=== PATIENT | male | born 1935 | race Caucasian/White ===

== ENCOUNTER 2017-10-13 10:46 | Observation (INO) | payer OTHER, MEDICARE ==
[~2017-10-13] VITALS: Ht 172.7 cm; Wt 77.0 kg
[~2017-10-13 10:46] MED LIST: ACET500 PO; ASPI325EC PO; ASPI81EC PO; ATEN50 PO; ATENOLOL PO; ATOR20 PO; CHOL10002 PO; CLOP75 PO; COLCHICINE0.6 MG PO; DICL25ER PO; FERR325 PO; Fergon240 M1 PO; GABA300 PO; GLIP5 PO; HYDRO EYES PO; HYDROCHLOROTHIAZIDE PO; INSN100I SC; INSULANPEN SC; LISI20 PO; LISINOPRIL PO; LOSA50 PO; METF850 PO; NOVOLIN SQ; OMEP20ER PO; OMEPRAZOLE MAGN20 MG PO; PRAZ2 PO; ROXICODONE5 MG PO; SIMV20 PO; Vitamin C100 M1 PO
[2017-10-13 11:48] LABS: BASOPHILS ABSOLUTE AUTO 0.02 K/mm3 (0.00-0.23); BASOPHILS PERCENT AUTO 0 % (0-2); EOSINOPHILS ABSOLUTE AUTO 0.19 K/mm3 (0.00-0.68); EOSINOPHILS PERCENT AUTO 3 % (0-6); Hematocrit 31.9 % (37.0-53.0); Hemoglobin 10.2 g/dL (13.5-17.5); IMMATURE GRAN ABSOLUTE AUTO 0.01 K/mm3 (0.00-0.10); IMMATURE GRAN PERCENT AUTO 0 % (0-1); LYMPHOCYTES ABSOLUTE AUTO 0.56 K/mm3 (0.84-5.20); LYMPHOCYTES PERCENT AUTO 9 % (21-46); MONOCYTES ABSOLUTE AUTO 0.67 K/mm3 (0.16-1.47); MONOCYTES PERCENT AUTO 11 % (4-13); Mean Corpuscular HGB 27.9 pg (26.0-34.0); Mean Corpuscular Volume 87 fL (80-100); Mean Platelet Volume 10.5 fL (9.1-12.4); NEUTROPHILS ABSOLUTE AUTO 4.82 K/mm3 (1.96-9.15); NEUTROPHILS PERCENT AUTO 77 % (41-73); Platelet Count 158 K/mm3 (150-400); RDW Coefficient Variation 14.9 % (11.7-14.2); RDW Standard Deviation 47.4 fL (35.1-46.3); Red Blood Cell Count 3.66 M/mm3 (4.30-5.90); White Blood Cell Count 6.27 K/mm3 (4.00-11.30)
[2017-10-13 12:16] LABS: Alanine Aminotransfer (ALT/SGP 30 U/L (12-78); Albumin, Blood 3.1 g/dL (3.4-5.0); Albumin/Globulin Ratio 1.1 (0.8-1.8); Alk Phos 88 U/L (50-136); Anion Gap 7 mmol/L (6-16); Aspartate Aminotrans (AST/SGOT 20 U/L (12-37); Bilirubin, Total 0.3 mg/dL (0.1-1.0); Blood Urea Nitrogen 21 mg/dL (8-24); Bun/Creatinine Ratio 19.6 (12.0-20.0); CO2, Blood 24 mmol/L (21-32); Chloride, Blood 111 mmol/L (98-108); Creatinine, Blood 1.07 mg/dL (0.60-1.20); Globulin, Blood 2.9 g/dL (2.2-4.0); Glomerular Filtration Rate >60 (60-); Glucose, Blood 207 mg/dL (70-99); Potassium, Blood 4.3 mmol/L (3.5-5.5); Sodium, Blood 142 mmol/L (136-145); Troponin I <0.015 ng/mL (0.000-0.040)
[2017-10-13] MEDS ORDERED: PRAZ2 PO (12:36)
[2017-10-13] MEDS ORDERED: ATEN50 PO (12:37)
[2017-10-13] MEDS ORDERED: ACET500 PO (12:38)
[2017-10-13] MEDS ORDERED: ALLO100 PO (12:40)
[2017-10-13 13:13] LABS: International Normalized Ratio 1.01; Prothrombin Time Results 10.5 Sec (9.7-11.5)
[2017-10-14 05:42] LABS: CHOL/HDL RATIO 2.7; Cholesterol 74 mg/dL (50-200); HDL Cholesterol 27 mg/dL (>39); LDL/HDL RATIO 0.1; Low Density Lipoprotein Chol 4 mg/dL (0-110); Triglycerides 217 mg/dL (30-160); Very Low Density Lipoprot Chol 43 mg/dL (6-32)
[2017-10-14] MEDS ORDERED: Aspirin EC81 MG PO (09:36)
== END 2017-10-14 10:48 | disposition home or self-care (01) ==
LOC: ER 10:46 → MEDS 10:47 → ER 12:58 → MEDS 12:58 → ENPENDDIS 10-14 09:00 → MEDS 10-14 10:48
PROVIDERS: Family Medicine; Physician Assistant
DX: G45.9 Transient cerebral ischemic attack, unspecified (principal); E78.5 Hyperlipidemia, unspecified; I10 Essential (primary) hypertension; E11.9 Type 2 diabetes mellitus without complications; D50.9 Iron deficiency anemia, unspecified; I25.10 Atherosclerotic heart disease of native coronary artery without angina pectoris; I73.9 Peripheral vascular disease, unspecified; M10.9 Gout, unspecified; G89.29 Other chronic pain; Z87.11 Personal history of peptic ulcer disease; Z87.442 Personal history of urinary calculi; Z87.891 Personal history of nicotine dependence; Z88.6 Allergy status to analgesic agent; Z88.8 Allergy status to other drugs, medicaments and biological substances; Z79.02 Long term (current) use of antithrombotics/antiplatelets; Z79.52 Long term (current) use of systemic steroids; Z79.82 Long term (current) use of aspirin; Z79.84 Long term (current) use of oral hypoglycemic drugs; Z79.899 Other long term (current) drug therapy; Z96.652 Presence of left artificial knee joint; Z90.89 Acquired absence of other organs; Z98.890 Other specified postprocedural states
CPT/HCPCS: 36415; 70450; 70551; 80053; 80061; 82947; 84443; 84484; 85025; 85610; 85730; 93005; 93010; 93880; 97116; 97161; 97530; 99285; G0378; G8978; G8979; G8980; J1650; J1815

== ENCOUNTER → 2018-06-16 | Outpatient (CLI) | payer MEDICARE, OTHER ==
[~2018-06-16] MED LIST changes: +ALLO100 PO; +Aspirin EC81 MG PO
== END | disposition home or self-care (01) ==
LOC: PLD 08:11 → LAB SHORT 08:11
DX: D22.5 Melanocytic nevi of trunk (principal)
CPT/HCPCS: 88305

== ENCOUNTER → 2018-06-25 | Outpatient (CLI) | payer MEDICARE, OTHER | END | disposition home or self-care (01) | LOC: LAB SHORT 11:45 → PLD 11:45 | DX: D22.5 Melanocytic nevi of trunk (principal) | CPT/HCPCS: 88305 ==

== ENCOUNTER 2018-10-13 13:29 | Observation (INO) | payer OTHER, MEDICARE ==
[~2018-10-13] VITALS: Ht 172.7 cm; Wt 77.6 kg
[2018-10-13 14:40] LABS: BASOPHILS ABSOLUTE AUTO 0.03 K/mm3 (0.00-0.23); BASOPHILS PERCENT AUTO 1 % (0-2); EOSINOPHILS ABSOLUTE AUTO 0.16 K/mm3 (0.00-0.68); EOSINOPHILS PERCENT AUTO 3 % (0-6); Hematocrit 32.7 % (37.0-53.0); Hemoglobin 10.1 g/dL (13.5-17.5); IMMATURE GRAN ABSOLUTE AUTO 0.03 K/mm3 (0.00-0.10); IMMATURE GRAN PERCENT AUTO 1 % (0-1); LYMPHOCYTES ABSOLUTE AUTO 0.99 K/mm3 (0.84-5.20); LYMPHOCYTES PERCENT AUTO 18 % (21-46); MONOCYTES ABSOLUTE AUTO 0.44 K/mm3 (0.16-1.47); MONOCYTES PERCENT AUTO 8 % (4-13); Mean Corpuscular HGB 27.9 pg (26.0-34.0); Mean Corpuscular HGB Conc 30.9 g/dL (31.5-36.5); Mean Corpuscular Volume 90 fL (80-100); Mean Platelet Volume 10.6 fL (9.1-12.4); NEUTROPHILS ABSOLUTE AUTO 3.81 K/mm3 (1.96-9.15); NEUTROPHILS PERCENT AUTO 70 % (41-73); Platelet Count 190 K/mm3 (150-400); RDW Coefficient Variation 15.1 % (11.7-14.2); RDW Standard Deviation 49.6 fL (35.1-46.3); Red Blood Cell Count 3.62 M/mm3 (4.30-5.90); White Blood Cell Count 5.46 K/mm3 (4.00-11.30)
[2018-10-13 14:51] LABS: Alanine Aminotransfer (ALT/SGP 31 U/L (12-78); Albumin, Blood 3.1 g/dL (3.4-5.0); Alk Phos 84 U/L (50-136); Anion Gap 5 mmol/L (6-16); Aspartate Aminotrans (AST/SGOT 23 U/L (12-37); Bilirubin, Total 0.3 mg/dL (0.1-1.0); Blood Urea Nitrogen 16 mg/dL (8-24); Bun/Creatinine Ratio 14.2 (12.0-20.0); CO2, Blood 27 mmol/L (21-32); Calcium, Blood 7.9 mg/dL (8.5-10.1); Chloride, Blood 111 mmol/L (98-108); Creatinine, Blood 1.13 mg/dL (0.60-1.20); Glomerular Filtration Rate >60 (60-); Glucose, Blood 160 mg/dL (70-99); Potassium, Blood 4.4 mmol/L (3.5-5.5); Sodium, Blood 143 mmol/L (136-145); Total Protein, Blood 6.1 g/dL (6.4-8.2); Troponin I <0.015 ng/mL (0.000-0.040)
--- NOTE | 2018-10-13 17:06 | NUR ---
ECHOCARDIOGRAM COMPLETED
--- NOTE | 2018-10-13 19:16 | NUR ---
SHIFT SUMMARY. 1800 PT ADMITTED TO MEDICAL FLOOR VIA W/C. PT TRANSFERED TO W/C WITH 1 ASSIST. PT REPORTS DULL SUBSTERNAL PAIN OF 3/10. PT REPORTS PAIN HAS BEEN A 5/10 AT NOON. NO SOB, DIAPHORESIS, N/V. AT BEDSIDE. REQUESTED [facility] REC AND MOST RECENT EKG VIA FAX.
[2018-10-13] MEDS ORDERED: PANT40 PO (20:21)
[2018-10-13] MEDS ORDERED: CETI5 PO (20:22)
[2018-10-13] MEDS ORDERED: METO50 PO (20:23)
--- NOTE | 2018-10-14 04:23 | NUR ---
SHIFT SUMMARY PT ADMITTED FOR CP. LIMITED CODE STATUS: MEDICATION, CHEST COMPRESSION, DEFIBRILLATION. ADA-1800 CALORIE DIET. CBG AT AND HS. LOVENOX FOR DVT PROPHYLAXIS. 1 ASSIST WITH TRANSFER. BALANCE ISSUES NOTED. MEDS WHOLE. PT WOKE YESTERDAY AM FEELING DIZZY, LIKE HIS HEART WAS RACING, AND NAUSEATED. BY THE AFTERNOON THE PT HAD DEVELOPED DULL MIDCHEST CP THAT HAS GRADUALLY INCREASED. THE PT REPORTS HISTORY OF A SMALL NC IN THE . THE PT APPEARS TO BE ALERT, ORIENTED, PLEASENT, AND COOPERATIVE WITH CARE. PT HAS APPEARED TO SLEEP COMFORTABLY SINCE ABOUT 0000 AND LEFT AROUND 0015 AND STATED SHE WOULD RETURN AROUND 0600. EASILY AWAKENS WITH CARE. PT APPEARS TO BE SLEEPING COMFORTABLY AT THIS TIME WITH NO APPARENT SIGNS OF ACUTE DISTRESS. ABLE TO MAKE NEEDS KNOWN AND CALL LIGHT IN REACH.
[2018-10-14 04:32] LABS: Anion Gap 7 mmol/L (6-16); Blood Urea Nitrogen 17 mg/dL (8-24); Bun/Creatinine Ratio 15.6 (12.0-20.0); CO2, Blood 25 mmol/L (21-32); Calcium, Blood 8.2 mg/dL (8.5-10.1); Chloride, Blood 112 mmol/L (98-108); Creatinine, Blood 1.09 mg/dL (0.60-1.20); Glomerular Filtration Rate >60 (60-); Glucose, Blood 91 mg/dL (70-99); Potassium, Blood 3.8 mmol/L (3.5-5.5); Sodium, Blood 144 mmol/L (136-145)
--- NOTE | 2018-10-14 05:47 | NUR ---
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
[2018-10-14] MEDS ORDERED: ASPI81CH PO (10:48)
--- NOTE | 2018-10-14 13:26 | NUR ---
1152 PT DISCHARGED HOME VIA PERSONAL VEHICLE ACCOMPANIED AND DRIVEN BY . PT ESCORTED TO FACILITY ENTRANCE VIA W/C BY [employer]. FIELD START IV REMOVED. NO NEW RX. D/C PAPERWORK REVIEWED WITH PT AND COPY PROVIDED. NO NEW CHANGES.
== END 2018-10-14 11:52 | disposition home or self-care (01) ==
LOC: ER 13:29 → MEDS 13:30 → ENPENDDIS 10-14 11:00 → MEDS 10-14 11:52
PROVIDERS: Emergency Medicine; ADMIT Hospitalist
DX: R07.89 Other chest pain (principal); E11.9 Type 2 diabetes mellitus without complications; I10 Essential (primary) hypertension; E78.5 Hyperlipidemia, unspecified; I25.2 Old myocardial infarction; Z79.899 Other long term (current) drug therapy; Z79.4 Long term (current) use of insulin; Z79.82 Long term (current) use of aspirin; Z79.02 Long term (current) use of antithrombotics/antiplatelets
CPT/HCPCS: 36415; 71046; 80048; 80053; 82947; 83690; 84484; 85025; 93005; 93010; 93306; 96372; 99285-25; G0378; J1650

== ENCOUNTER → 2022-12-20 | Outpatient (CLI) | payer MEDICARE, OTHER ==
[~2022-12-20] MED LIST changes: +ASPI81CH PO; +ATOR40TA PO; +BASAGLAR K100 UNIT/1 SC; +CETI5 PO; +FUROSEMIDE20 MG PO; +Fruity C250 MG PO; +LOSARTAN POTAS100 MG PO; +METF500 PO; +METO50 PO; +MINIPRESS2 M1 PO; +NOVOLOG100 UNIT/1 SC; +Neurontin 300300 MG PO; +PANT40 PO; +Potassium Chlo20 ME1 PO; +VITAMIN D31000 UNIT PO; +Vitamin B-121000 MCG PO
[2022-12-20 14:00] LABS: Source, Urine Clean Catch
[2022-12-20 15:17] LABS: Bacteria Few /hpf; Red Blood Cells, Urine 0-2 /hpf (0-2); Squamous Epithelial Cells Few /hpf (Few)
== END | disposition home or self-care (01) ==
LOC: LAB SHORT 13:59
PROVIDERS: Family Medicine
DX: R30.0 Dysuria (principal)
CPT/HCPCS: 81015; 87086

== ENCOUNTER 2023-03-28 11:52 | Observation (INO) | payer OTHER ==
[~2023-03-28] VITALS: Ht 167.6 cm; Wt 76.3 kg
[2023-03-28 12:12] LABS: BASOPHILS ABSOLUTE AUTO 0.03 K/mm3 (0.00-0.23); BASOPHILS PERCENT AUTO 1 % (0-2); EOSINOPHILS ABSOLUTE AUTO 0.16 K/mm3 (0.00-0.68); EOSINOPHILS PERCENT AUTO 3 % (0-6); Hematocrit 31.4 % (37.0-53.0); Hemoglobin 9.8 g/dL (13.5-17.5); IMMATURE GRAN ABSOLUTE AUTO 0.03 K/mm3 (0.00-0.10); IMMATURE GRAN PERCENT AUTO 1 % (0-1); LYMPHOCYTES ABSOLUTE AUTO 1.16 K/mm3 (0.84-5.20); LYMPHOCYTES PERCENT AUTO 19 % (21-46); MONOCYTES ABSOLUTE AUTO 0.59 K/mm3 (0.16-1.47); MONOCYTES PERCENT AUTO 10 % (4-13); Mean Corpuscular HGB 26.8 pg (26.0-34.0); Mean Corpuscular HGB Conc 31.2 g/dL (31.5-36.5); Mean Corpuscular Volume 86 fL (80-100); Mean Platelet Volume 10.3 fL (9.1-12.4); NEUTROPHILS ABSOLUTE AUTO 4.15 K/mm3 (1.96-9.15); NEUTROPHILS PERCENT AUTO 68 % (41-73); Platelet Count 190 K/mm3 (150-400); RDW Coefficient Variation 15.5 % (11.7-14.2); RDW Standard Deviation 48.9 fL (35.1-46.3); Red Blood Cell Count 3.66 M/mm3 (4.30-5.90); White Blood Cell Count 6.12 K/mm3 (4.00-11.30)
[2023-03-28 12:32] LABS: Bilirubin, Total 0.3 mg/dL (0.1-1.0); Bun/Creatinine Ratio 21.5 (12.0-20.0); Calcium, Blood 8.6 mg/dL (8.5-10.1); Creatinine, Blood 1.3 mg/dL (0.60-1.20); Globulin, Blood 3.1 g/dL (2.2-4.0); Potassium, Blood 4.6 mmol/L (3.5-5.5); Total Protein, Blood 6.1 g/dL (6.4-8.2)
[2023-03-28 14:52] VITALS: BP 134/62
[2023-03-28 16:37] LABS: Anti-Xa UFH, PHA Monitoring <0.10 IU/mL; International Normalized Ratio 1.01; Prothrombin Time Results 10.6 Sec (9.7-11.5)
--- NOTE | 2023-03-28 17:41 | NUR ---
PT DENIES PAIN OR HEADACHE. 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 PT WITH OCC TROUBLE FINDING A WORD. PT ALERT, ORIENTED AND COOPERATIVE. HEPARIN GTT INFUSING AT 18 U/KG/HR OR 27 ML PER HOUR. MONITOR SHOWS SR WITH FIRST DEGREE AND BBB
--- NOTE | 2023-03-28 17:58 | NUR ---
Pt. is awake in bed and welcomes my visit. Pt. is pleasant. Facilitated a life review and established rapport. Pt. displays evidence of enganement and awareness. Considered matters of felipe and belief. When the Pts. dinner arrived we prayed together. Pt. verbalized gratitude for the spiritual care visit and welcomed this job compositor to return.
--- NOTE | 2023-03-28 18:34 | NUR ---
1830 TO MRI VIA [facility]. HEPARIN DISCONNECTED. PHARMACY NOTIFIED OF HEPARING BEING TURNED OFF AND WILL CONTACT PHARMACY WHEN PATIENT RETURNS TO ROOM
--- NOTE | 2023-03-28 19:04 | NUR ---
1855 returned to room from mri and heparin reconnected at 1855. notified pharmacy regarding patients time off heparin
[2023-03-28 20:12] VITALS: BP 123/54
[2023-03-29 03:27] VITALS: BP 115/59
[2023-03-29 05:44] LABS: Anion Gap 5 mmol/L (6-16); Blood Urea Nitrogen 22 mg/dL (8-24); CO2, Blood 27 mmol/L (21-32); Calcium, Blood 8.9 mg/dL (8.5-10.1); Chloride, Blood 110 mmol/L (98-108); Creatinine, Blood 1.22 mg/dL (0.60-1.20); Glomerular Filtration Rate 57 (60-); Glucose, Blood 139 mg/dL (70-99); Magnesium, Blood 1.9 mg/dL (1.6-2.4); Phosphorus, Blood 2.8 mg/dL (2.5-4.9); Potassium, Blood 4.2 mmol/L (3.5-5.5); Sodium, Blood 142 mmol/L (136-145)
[2023-03-29 07:33] VITALS: BP 139/74
--- NOTE | 2023-03-29 14:07 | NUR ---
Spiritual Care Visit Pt. is awake in bed and welcomes my visit. Spouse and daughter are present. Pt. is pleasant. Re-establish rapport and facilitate a life review for the family members that are present. Pt. displayed evidence of being in good spirits. Prayed with the Pt. and family. All verbalized gratitude for the spiritual care visit.
[2023-03-29 14:42] VITALS: BP 141/78
[2023-03-29 20:54] VITALS: BP 139/68
[2023-03-30 05:27] VITALS: BP 125/61
--- NOTE | 2023-03-30 06:10 | NUR ---
SHIFT SUMMARY PT A&OX4, AND COOPERATIVE WITH CARE. PT RESTED MAJORITY OF SHIFT. PT STATES HIS SPEECH IS BACK TO BASELINE. COMMUNITY COORDINATOR EQUAL, NO FACIAL DROOP. PT ABLE TO AMBULATED TO DANGLE AT BEDSIDE UNASSISTED. SBA WITH FWW TO BATHROOM. TOLERATING PO INTAKE. TELE REPORTS SINUS @65 WITH FIRST DEGREE BLOCK. CALLS APPROPRIATELY, CALL LIGHT WITHIN REACH.
[2023-03-30 07:36] VITALS: BP 127/61
[2023-03-30] MEDS ORDERED: Vitamin D1000 UNI1 (11:09)
[2023-03-30] MEDS ORDERED: ACET500 PO (11:10)
[2023-03-30] MEDS ORDERED: XARELTO20 MG PO ×2 (11:11→11:12)
[2023-03-30 11:17] VITALS: BP 122/59
--- NOTE | 2023-03-30 11:47 | NUR ---
DISCHARGE PT PROVIDED WITH WRITTEN AND VERBAL DISCHARGE INSTRUCTIONS; PT AND FAMILY REPORTED UNDERSTANDING. FAMILY VERBALIZED THAT THE XARELTO PRESCRIPTION WAS READY AT [facility] AND THEY WOULD PICK IT UP ON THE WAY HOME. AT TIME OF DISCHARGE PT BACK TO BASELINE FUNCTION. VSS. SCRIPT PROVIDED FOR OUTPATIENT PHYSICAL THERAPY. PT ASSISTED OUT IN W/C AT APPROXIMATELY 1145.
== END 2023-03-30 11:47 | disposition home or self-care (01) ==
LOC: ER 11:52 → MEDS 11:53 → SURS 11:53 → MEDS 03-29 16:57 → ENPENDDIS 03-30 08:57 → MEDS 03-30 11:47
PROVIDERS: Emergency Medicine; ADMIT Internal Medicine
DX: G45.9 Transient cerebral ischemic attack, unspecified (principal); I82.4Z9 Acute embolism and thrombosis of unspecified deep veins of unspecified distal lower extremity; E11.9 Type 2 diabetes mellitus without complications; D50.9 Iron deficiency anemia, unspecified; I10 Essential (primary) hypertension; I73.9 Peripheral vascular disease, unspecified; I25.10 Atherosclerotic heart disease of native coronary artery without angina pectoris; Z79.01 Long term (current) use of anticoagulants; Z86.73 Personal history of transient ischemic attack (TIA), and cerebral infarction without residual deficits
CPT/HCPCS: 36415; 70450; 70496; 70498; 70551; 80053; 80069; 82947; 83036; 83735; 84484; 85025; 85520; 85610; 85730; 93005; 93010; 93308; 93321; 93971; 96374; 96375; 96376; 97116; 97162; 99285-25; A9270; G0378; J1644; Q9967

== ENCOUNTER 2023-04-20 15:04 | Observation (INO) | payer OTHER, MEDICARE ==
[~2023-04-20] VITALS: Ht 200.7 cm; Wt 74.8 kg
[~2023-04-20 15:04] MED LIST changes: +Vitamin D1000 UNI1; +XARELTO20 MG PO
[2023-04-20 15:25] LABS: BASOPHILS ABSOLUTE AUTO 0.04 K/mm3 (0.00-0.23); BASOPHILS PERCENT AUTO 1 % (0-2); EOSINOPHILS ABSOLUTE AUTO 0.13 K/mm3 (0.00-0.68); EOSINOPHILS PERCENT AUTO 2 % (0-6); Hematocrit 27.5 % (37.0-53.0); Hemoglobin 8.6 g/dL (13.5-17.5); IMMATURE GRAN ABSOLUTE AUTO 0.02 K/mm3 (0.00-0.10); IMMATURE GRAN PERCENT AUTO 0 % (0-1); LYMPHOCYTES ABSOLUTE AUTO 1.22 K/mm3 (0.84-5.20); LYMPHOCYTES PERCENT AUTO 21 % (21-46); MONOCYTES ABSOLUTE AUTO 0.55 K/mm3 (0.16-1.47); MONOCYTES PERCENT AUTO 9 % (4-13); Mean Corpuscular HGB Conc 31.3 g/dL (31.5-36.5); Mean Corpuscular Volume 86 fL (80-100); Mean Platelet Volume 9.6 fL (9.1-12.4); NEUTROPHILS ABSOLUTE AUTO 3.97 K/mm3 (1.96-9.15); NEUTROPHILS PERCENT AUTO 67 % (41-73); Platelet Count 190 K/mm3 (150-400); RDW Coefficient Variation 16.7 % (11.7-14.2); RDW Standard Deviation 51.5 fL (35.1-46.3); Red Blood Cell Count 3.19 M/mm3 (4.30-5.90); White Blood Cell Count 5.93 K/mm3 (4.00-11.30)
[2023-04-20 15:52] LABS: Albumin, Blood 2.9 g/dL (3.4-5.0); Bilirubin, Total 0.3 mg/dL (0.1-1.0); Bun/Creatinine Ratio 15.2 (12.0-20.0); Calcium, Blood 8.7 mg/dL (8.5-10.1); Creatinine, Blood 1.25 mg/dL (0.60-1.20); Globulin, Blood 2.8 g/dL (2.2-4.0); Total Protein, Blood 5.7 g/dL (6.4-8.2)
[2023-04-20 18:37] VITALS: BP 135/67
--- NOTE | 2023-04-20 18:48 | NUR ---
ADMISSION PATIENT ADMITTED FROM ED AT 1830. PATIENT ALERT AND REQUESTING TO USE THE BR. PATIENT ABLE TO TRANSFER FROM WHEELCHAIR TO TOILET AND WALKED WITH WALKER TO THE BED. PATIENT STATES HE WAS HERE ABOUT 3 WEEKS AGO WITH SIMILAR SYMPTOMS AND WAS FOUND TO HAVE A DVT IN HIS R LEG. PATIENT WAS DISCHARGED ON XARELTO. PATIENT STATES R SIDED WEAKNESS SEEMS TO HAVE GONE AWAY TODAY. PATIENT CONTINUES TO HAVE MIDSTERNAL CHEST PAIN BUT MILD. 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 NO SKIN ISSUES NOTED.
[2023-04-20 19:25] VITALS: BP 128/72
[2023-04-21 04:37] LABS: BASOPHILS ABSOLUTE AUTO 0.03 K/mm3 (0.00-0.23); BASOPHILS PERCENT AUTO 1 % (0-2); EOSINOPHILS ABSOLUTE AUTO 0.15 K/mm3 (0.00-0.68); EOSINOPHILS PERCENT AUTO 3 % (0-6); Hematocrit 27.8 % (37.0-53.0); Hemoglobin 8.6 g/dL (13.5-17.5); IMMATURE GRAN ABSOLUTE AUTO 0.02 K/mm3 (0.00-0.10); IMMATURE GRAN PERCENT AUTO 0 % (0-1); LYMPHOCYTES ABSOLUTE AUTO 1.02 K/mm3 (0.84-5.20); LYMPHOCYTES PERCENT AUTO 19 % (21-46); MONOCYTES ABSOLUTE AUTO 0.59 K/mm3 (0.16-1.47); MONOCYTES PERCENT AUTO 11 % (4-13); Mean Corpuscular HGB Conc 30.9 g/dL (31.5-36.5); Mean Corpuscular Volume 87 fL (80-100); Mean Platelet Volume 9.8 fL (9.1-12.4); NEUTROPHILS ABSOLUTE AUTO 3.48 K/mm3 (1.96-9.15); NEUTROPHILS PERCENT AUTO 66 % (41-73); Platelet Count 181 K/mm3 (150-400); RDW Coefficient Variation 16.6 % (11.7-14.2); RDW Standard Deviation 53.2 fL (35.1-46.3); Red Blood Cell Count 3.19 M/mm3 (4.30-5.90); White Blood Cell Count 5.29 K/mm3 (4.00-11.30)
[2023-04-21 04:38] VITALS: BP 125/55
[2023-04-21 05:02] LABS: Albumin, Blood 2.8 g/dL (3.4-5.0); Albumin/Globulin Ratio 1.1 (0.8-1.8); Bilirubin, Total 0.3 mg/dL (0.1-1.0); Bun/Creatinine Ratio 15.4 (12.0-20.0); Calcium, Blood 8.9 mg/dL (8.5-10.1); Creatinine, Blood 1.23 mg/dL (0.60-1.20); Globulin, Blood 2.5 g/dL (2.2-4.0); Potassium, Blood 4.3 mmol/L (3.5-5.5); Total Protein, Blood 5.3 g/dL (6.4-8.2)
--- NOTE | 2023-04-21 06:40 | NUR ---
SHIFT SUMMARY PATIENT ALERT, PLEASANT. MILD SLURRED SPEECH, BUT ABLE TO MAKE NEEDS KNOWN. ONGOING RIGHT SIDED WEAKNESS, MORE PRONOUNCED IN RLE, RUE MILD WEAKNESS. SBA WITH WALKER. REGULARLY USES WALKER AT HOME FOR BALANCE. NO ACUTE NEUROLOGICAL CHANGES OVERNIGHT. PIV TO LEFT AC, PATENT, FLUSHES WELL. ON TELE, SR 70S, HAS ASCVD. BED IN LOW POSITION, CALL LIGHT WITHIN REACH.
[2023-04-21 07:46] VITALS: BP 128/69
--- NOTE | 2023-04-21 18:38 | NUR ---
SHIFT SUMMARY AND DISCHARGE PATIENT CONTINUES TO HAVE SLIGHT R SIDED WEAKNESS. PATIENT STATES THAT IT IS HIS NORM. PATIENT CONTINUES TO HAVE SLIGHT EPIGASTRIC PAIN UNCHANGED WITH DEEP BREATHS. PATIENT ABLE TO AMBULATE AROUND ROOM WITH STAND BY ASSIST AND USE OF WALKER. PATIENT DISCHARGED TO HOME. DISCHARGE INSTRUCTIONS REVIEWED WITH PATIENT AND FAMILY. PATIENT TO FOLLOW UP WITH DR. ART TOMORROW PREVIOUSLY SCHEDULED. ROOM CHECK DONE WITH PATIENT AND FAMILY. BELONGINGS SENT HOME WITH PATIENT. PATIENT TAKEN OUT VIA WHEELCHAIR.
== END 2023-04-21 14:13 | disposition home or self-care (01) ==
LOC: ER 15:04 → MEDS 15:05 → ENPENDDIS 04-21 13:11 → MEDS 04-21 14:13
PROVIDERS: Emergency Medicine; ADMIT Student in an Organized Health Care Education/Training Program
DX: R07.89 Other chest pain (principal); G45.9 Transient cerebral ischemic attack, unspecified; I10 Essential (primary) hypertension; I82.459 Acute embolism and thrombosis of unspecified peroneal vein; E11.9 Type 2 diabetes mellitus without complications; I25.2 Old myocardial infarction; Z88.8 Allergy status to other drugs, medicaments and biological substances
CPT/HCPCS: 36415; 70450; 71045; 80053; 82947; 83735; 83880; 84484; 85025; 93005; 93010; 96374; 96375; 99285-25; A9270; G0378; J2405; J3010

== ENCOUNTER 2023-07-09 15:33 | Emergency (ER) | payer MEDICARE, OTHER ==
[~2023-07-09] VITALS: Ht 167.6 cm; Wt 72.6 kg
[2023-07-09 17:21] LABS: BASOPHILS ABSOLUTE AUTO 0.04 K/mm3 (0.00-0.23); BASOPHILS PERCENT AUTO 0 % (0-2); EOSINOPHILS ABSOLUTE AUTO 0.07 K/mm3 (0.00-0.68); EOSINOPHILS PERCENT AUTO 1 % (0-6); Hematocrit 31.9 % (37.0-53.0); Hemoglobin 10.1 g/dL (13.5-17.5); IMMATURE GRAN ABSOLUTE AUTO 0.11 K/mm3 (0.00-0.10); IMMATURE GRAN PERCENT AUTO 1 % (0-1); LYMPHOCYTES ABSOLUTE AUTO 0.52 K/mm3 (0.84-5.20); LYMPHOCYTES PERCENT AUTO 4 % (21-46); MONOCYTES ABSOLUTE AUTO 0.36 K/mm3 (0.16-1.47); MONOCYTES PERCENT AUTO 3 % (4-13); Mean Corpuscular HGB 28.2 pg (26.0-34.0); Mean Corpuscular HGB Conc 31.7 g/dL (31.5-36.5); Mean Corpuscular Volume 89 fL (80-100); Mean Platelet Volume 10.2 fL (9.1-12.4); NEUTROPHILS ABSOLUTE AUTO 11.24 K/mm3 (1.96-9.15); NEUTROPHILS PERCENT AUTO 91 % (41-73); Platelet Count 200 K/mm3 (150-400); RDW Coefficient Variation 16.5 % (11.7-14.2); RDW Standard Deviation 52.1 fL (35.1-46.3); Red Blood Cell Count 3.58 M/mm3 (4.30-5.90); White Blood Cell Count 12.34 K/mm3 (4.00-11.30)
[2023-07-09 17:33] LABS: Albumin, Blood 3.4 g/dL (3.4-5.0); Albumin/Globulin Ratio 1.1 (0.8-1.8); Bilirubin, Total 0.2 mg/dL (0.1-1.0); Bun/Creatinine Ratio 20.8 (12.0-20.0); Calcium, Blood 9.6 mg/dL (8.5-10.1); Creatinine, Blood 1.3 mg/dL (0.60-1.20); Globulin, Blood 3.1 g/dL (2.2-4.0); Potassium, Blood 4.5 mmol/L (3.5-5.5); Total Protein, Blood 6.5 g/dL (6.4-8.2)
[2023-07-09] MEDS ORDERED: POTCHL20ER PO (17:38)
[2023-07-09] MEDS ORDERED: FURO20 PO (17:39)
[2023-07-09 19:30] VITALS: BP 108/54
== END 2023-07-09 19:55 | disposition home or self-care (01) ==
LOC: ER 15:33
PROVIDERS: Student in an Organized Health Care Education/Training Program
DX: M62.838 Other muscle spasm (principal); R53.1 Weakness; T45.4X5A Adverse effect of iron and its compounds, initial encounter; I10 Essential (primary) hypertension; E11.9 Type 2 diabetes mellitus without complications; I25.2 Old myocardial infarction; E78.5 Hyperlipidemia, unspecified; M10.9 Gout, unspecified; Z88.8 Allergy status to other drugs, medicaments and biological substances; Z79.84 Long term (current) use of oral hypoglycemic drugs; Z79.02 Long term (current) use of antithrombotics/antiplatelets; Z79.899 Other long term (current) drug therapy; Z86.73 Personal history of transient ischemic attack (TIA), and cerebral infarction without residual deficits
CPT/HCPCS: 71045; 80053; 84484; 85025; 93005; 93010; 99285-25

== ENCOUNTER → 2023-09-02 | Outpatient (CLI) | payer MEDICARE, OTHER ==
[~2023-09-02] MED LIST changes: +FURO20 PO; +POTCHL20ER PO
[2023-09-02 21:02] LABS: Bun/Creatinine Ratio 22.7 (12.0-20.0); Calcium, Blood 8.9 mg/dL (8.5-10.1); Creatinine, Blood 1.41 mg/dL (0.60-1.20); Potassium, Blood 4.1 mmol/L (3.5-5.5)
== END | disposition home or self-care (01) ==
LOC: LAB 18:16 → LAB SHORT 18:16
PROVIDERS: Family Medicine
DX: R60.0 Localized edema (principal)
CPT/HCPCS: 80048

== ENCOUNTER 2023-09-04 06:12 | Emergency (ER) | payer MEDICARE, OTHER ==
[~2023-09-04] VITALS: Ht 177.8 cm; Wt 90.7 kg
[2023-09-04 06:35] LABS: Calcium, Ionized (POC) 1.24 mmol/L (1.10-1.46); Chloride (POC) 106 mmol/L (98-108); Creatinine (POC) 1.6 mg/dL (0.8-1.3); Glucose (ISTAT POC) 152 mg/dL (70-99); Hemoglobin (POC) 8.2 g/dL (13.5-17.5); Potassium (POC) 4.5 mmol/L (3.5-5.5); Sodium (POC) 141 mmol/L (135-148); Total CO2 (POC) 21 mmol/L (21-32)
[2023-09-04 07:47] VITALS: BP 111/45
== END 2023-09-04 08:45 | disposition home or self-care (01) ==
LOC: ER 06:12
PROVIDERS: Student in an Organized Health Care Education/Training Program
DX: S40.011A Contusion of right shoulder, initial encounter (principal); S10.93XA Contusion of unspecified part of neck, initial encounter; S30.0XXA Contusion of lower back and pelvis, initial encounter; R55 Syncope and collapse; I10 Essential (primary) hypertension; E11.9 Type 2 diabetes mellitus without complications; E78.5 Hyperlipidemia, unspecified; I25.2 Old myocardial infarction; Z88.8 Allergy status to other drugs, medicaments and biological substances; W06.XXXA Fall from bed, initial encounter; Z79.84 Long term (current) use of oral hypoglycemic drugs; Z79.02 Long term (current) use of antithrombotics/antiplatelets; Z79.899 Other long term (current) drug therapy; Z86.73 Personal history of transient ischemic attack (TIA), and cerebral infarction without residual deficits
CPT/HCPCS: 70450; 72125; 72131; 73030; 80047; 85014; 93005; 93010; 99285-25

== ENCOUNTER 2023-09-30 14:51 | Inpatient (IN) | payer OTHER ==
[~2023-09-30] VITALS: Ht 165.1 cm; Wt 72.6 kg
[~2023-09-30 14:51] MED LIST changes: -FURO20 PO; +FURO40 PO; +POTA10T PO; -POTCHL20ER PO; -Vitamin D1000 UNI1; +Vitamin D1000 UNI1 PO
[2023-09-30 15:22] LABS: BASOPHILS ABSOLUTE AUTO 0.03 K/mm3 (0.00-0.23); BASOPHILS PERCENT AUTO 1 % (0-2); EOSINOPHILS ABSOLUTE AUTO 0.19 K/mm3 (0.00-0.68); EOSINOPHILS PERCENT AUTO 3 % (0-6); Hematocrit 23.6 % (37.0-53.0); Hemoglobin 7.3 g/dL (13.5-17.5); IMMATURE GRAN ABSOLUTE AUTO 0.02 K/mm3 (0.00-0.10); IMMATURE GRAN PERCENT AUTO 0 % (0-1); LYMPHOCYTES ABSOLUTE AUTO 1.03 K/mm3 (0.84-5.20); LYMPHOCYTES PERCENT AUTO 18 % (21-46); MONOCYTES ABSOLUTE AUTO 0.52 K/mm3 (0.16-1.47); MONOCYTES PERCENT AUTO 9 % (4-13); Mean Corpuscular HGB 29.6 pg (26.0-34.0); Mean Corpuscular HGB Conc 30.9 g/dL (31.5-36.5); Mean Corpuscular Volume 96 fL (80-100); Mean Platelet Volume 10.4 fL (9.1-12.4); NEUTROPHILS ABSOLUTE AUTO 4.11 K/mm3 (1.96-9.15); NEUTROPHILS PERCENT AUTO 70 % (41-73); Platelet Count 180 K/mm3 (150-400); RDW Coefficient Variation 14.9 % (11.7-14.2); RDW Standard Deviation 51.6 fL (35.1-46.3); Red Blood Cell Count 2.47 M/mm3 (4.30-5.90)
[2023-09-30 15:47] LABS: Albumin, Blood 2.7 g/dL (3.4-5.0); Bilirubin, Total 0.2 mg/dL (0.1-1.0); Bun/Creatinine Ratio 27.9 (12.0-20.0); Calcium, Blood 8.1 mg/dL (8.5-10.1); Creatinine, Blood 1.29 mg/dL (0.60-1.20); Globulin, Blood 2.8 g/dL (2.2-4.0); Potassium, Blood 4.2 mmol/L (3.5-5.5); Thyroid Stimulating Hormone 1.35 uIU/mL (0.360-4.800); Total Protein, Blood 5.5 g/dL (6.4-8.2)
[2023-09-30 16:01] LABS: Base Excess Venous -2.5 mmol/L; Bicarbonate Venous 22.4 mmol/L (24.0-30.0); PCO2 Venous 37.9 mmHg (38-42); pH Blood Venous 7.38 (7.34-7.37)
[2023-09-30 20:30] VITALS: BP 112/55
[2023-09-30] MEDS ORDERED: STIOLTO RESPIMAT4 G1 INH (21:48)
[2023-10-01 02:59] VITALS: BP 109/57
[2023-10-01 04:49] LABS: Hematocrit 26.3 % (37.0-53.0); Hemoglobin 8.2 g/dL (13.5-17.5); Mean Corpuscular HGB 29.2 pg (26.0-34.0); Mean Corpuscular HGB Conc 31.2 g/dL (31.5-36.5); Mean Corpuscular Volume 94 fL (80-100); Mean Platelet Volume 10.2 fL (9.1-12.4); Platelet Count 178 K/mm3 (150-400); RDW Coefficient Variation 15.4 % (11.7-14.2); RDW Standard Deviation 53.1 fL (35.1-46.3); Red Blood Cell Count 2.81 M/mm3 (4.30-5.90); White Blood Cell Count 4.83 K/mm3 (4.00-11.30)
[2023-10-01 05:18] LABS: Bun/Creatinine Ratio 26.4 (12.0-20.0); Calcium, Blood 8.2 mg/dL (8.5-10.1); Creatinine, Blood 1.29 mg/dL (0.60-1.20); Magnesium, Blood 2.3 mg/dL (1.6-2.4); Potassium, Blood 4.1 mmol/L (3.5-5.5)
--- NOTE | 2023-10-01 05:21 | NUR ---
report from er received verifed pt a/o vss, has blood infusing, no c/o pain and has family at bedside. pt transfered well to bedside commode then c/o pain to lower extremities kness and feet, stated it was chronic. blood finished and labs were done, admission also finished. will cont to monitor
[2023-10-01 07:50] VITALS: BP 121/67
[2023-10-01 14:34] VITALS: BP 111/49
--- NOTE | 2023-10-01 17:27 | NUR ---
SHIFT SUMMARY PT A&OX4 AND PLEASANT. NO C/O PAIN. TOLERATING FULL LIQUID DIET. PT ABLE TO HAVE TWO BM'S TODAY. PT ALSO ABLE TO AMBULATE TO NURSES STATION AND BACK TO ROOM. TOLERATED WELL. Hgb IMPROVING. FAMILY AT BEDSIDE IN AFTERNOON. VSS. NO INSULIN COVERAGE NEEDED DURING DAY SHIFT. PT CALLS APPROPRIATELY. BED IN LOWEST POSITION AND CALL LIGHT IN REACH.
[2023-10-01 19:45] VITALS: BP 126/80
[2023-10-02 03:52] VITALS: BP 109/53
[2023-10-02 05:03] LABS: Bun/Creatinine Ratio 20.5 (12.0-20.0); Creatinine, Blood 1.17 mg/dL (0.60-1.20)
[2023-10-02 05:05] LABS: Hematocrit 26.1 % (37.0-53.0); Hemoglobin 8.2 g/dL (13.5-17.5)
--- NOTE | 2023-10-02 06:17 | NUR ---
SHIFT SUMMARY PATIENT ALERT AND ORIENTED X4. STAND BY ASSIST WITH FRONT WHEELED WALKER TO THE RESTROOM. WAS ON ROOM AIR OVERNIGHT. VITAL SIGNS STABLE, SINUS RHYTHM ON TELE. PATIENT DENIES HAVING CHEST PAIN AND SHORTNESS OF BREATH. NO ACUTE ISSUES NOTED OVERNIGHT. WILL CONTINUE TO MONITOR. CALL LIGHT WTIHIN REACH.
[2023-10-02 08:06] VITALS: BP 138/67
[2023-10-02 15:55] VITALS: BP 117/64
--- NOTE | 2023-10-02 17:06 | NUR ---
SHIFT SUMMARY PT A&OX4 AND PLEASANT. NO ACUTE CHANGES. DIET ADVANCED AND PT TOLERATING WELL. Hgb VALUE DROPPED SLIGHTLY TO 8.2. PT VERBILZED WANTING TO GO HOME AND FOLLOW UP WITH GI OUTPAIENT RATHER THAN WAITING IN THE HOSPITAL FOR A BED TO BECOME AVAILABLE. PT STATED HIS HAS DEMENTIA AND HE IS CONCERNCED ABOUT HER. CONTINUING TO DIURES PT. PLAN IS TO START PT ON XARELTO THIS EVENING AND MONITOR Hgb. VSS. NO C/O PAIN. BED IN LOWEST POSITION AND CALL LIGHT IN REACH.
[2023-10-02 19:57] VITALS: BP 137/65
--- NOTE | 2023-10-02 22:38 | NUR ---
2108 PT LYING IN BED, REPORTS SLIGHT SOB WITH EXERTION, ON RA AT 98%. TELE NSR AT 69. DENIES NEED FOR ANYTHING AT THIS TIME. NO OTHER APPARENT SIGNS OF DISTRESS. CALL LIGHT IS IN REACH.
--- NOTE | 2023-10-02 22:40 | NUR ---
PT LYING IN BED, DENIES NEED FOR ANYTHING AT THIS TIME. NO APPARENT SIGNS OF DISTRESS. CALL LIGHT IS IN REACH.
--- NOTE | 2023-10-03 01:37 | NUR ---
0000 PT LYING IN BED, EYES CLOSED, WAKES EASILY TO VERBAL STIMULI. NO APPARENT SIGNS OF DISTRESS. DENIES NEED FOR ANYTHING AT THIS TIME. CALL LIGHT IS IN REACH.
--- NOTE | 2023-10-03 01:37 | NUR ---
PT LYING IN BED, EYES CLOSED, APPEARS TO BE RESTING. BREATHING IS EVEN, UNLABORED. NO APPARENT SIGNS OF DISTRESS. CALL LIGHT IS IN REACH.
[2023-10-03 04:41] VITALS: BP 104/50
[2023-10-03 04:46] LABS: BASOPHILS ABSOLUTE AUTO 0.04 K/mm3 (0.00-0.23); BASOPHILS PERCENT AUTO 1 % (0-2); EOSINOPHILS ABSOLUTE AUTO 0.15 K/mm3 (0.00-0.68); EOSINOPHILS PERCENT AUTO 3 % (0-6); Hematocrit 25.6 % (37.0-53.0); Hemoglobin 8.3 g/dL (13.5-17.5); IMMATURE GRAN ABSOLUTE AUTO 0.02 K/mm3 (0.00-0.10); IMMATURE GRAN PERCENT AUTO 0 % (0-1); LYMPHOCYTES ABSOLUTE AUTO 1.12 K/mm3 (0.84-5.20); LYMPHOCYTES PERCENT AUTO 22 % (21-46); MONOCYTES ABSOLUTE AUTO 0.57 K/mm3 (0.16-1.47); MONOCYTES PERCENT AUTO 11 % (4-13); Mean Corpuscular HGB 29.5 pg (26.0-34.0); Mean Corpuscular HGB Conc 32.4 g/dL (31.5-36.5); Mean Corpuscular Volume 91 fL (80-100); Mean Platelet Volume 10.1 fL (9.1-12.4); NEUTROPHILS ABSOLUTE AUTO 3.27 K/mm3 (1.96-9.15); NEUTROPHILS PERCENT AUTO 63 % (41-73); Platelet Count 195 K/mm3 (150-400); RDW Coefficient Variation 14.7 % (11.7-14.2); RDW Standard Deviation 49.2 fL (35.1-46.3); Red Blood Cell Count 2.81 M/mm3 (4.30-5.90); White Blood Cell Count 5.17 K/mm3 (4.00-11.30)
--- NOTE | 2023-10-03 04:57 | NUR ---
0400 PT LYING IN BED, AWAKE, DENIES NEED FOR ANYTHING AT THIS TIME. NO APPARENT SIGNS OF DISTRESS. CALL LIGHT IS IN REACH.
--- NOTE | 2023-10-03 04:58 | NUR ---
PT IS AAO X 4, REPORTS SLIGHT SOB WITH EXERTION, ON RA AT 98%. GINNY NSR. REDNESS IN GROIN AREA, HAS MICONAZOLE POWDER.
[2023-10-03 05:07] LABS: Bun/Creatinine Ratio 17.9 (12.0-20.0); Creatinine, Blood 1.17 mg/dL (0.60-1.20); Potassium, Blood 3.8 mmol/L (3.5-5.5)
--- NOTE | 2023-10-03 05:32 | NUR ---
PT LYING IN BED, EYES CLOSED, APPEARS TO BE RESTING. BREATHING IS EVEN, UNLABORED. NO APPARENT SIGNS OF DISTRESS. CALL LIGHT IS IN REACH. NO OTHER CHANGES THIS SHIFT.
[2023-10-03 07:05] VITALS: BP 111/53
--- NOTE | 2023-10-03 08:20 | NUR ---
PT REPORTED ALLERGY TO SPIRIVA INHALER. VERIFIED WITH DAUGHTER. REACTION IS "THROAT CLOSES, DIFFICULTY BREATHING". DR. MARTIN NOTIFIED. ORDERS TO DC SPIRIVA, UPDATE ALLERGY LIST, BD PROTOCOL PLACED.
[2023-10-03] MEDS ORDERED: XARELTO20 MG PO (10:54)
--- NOTE | 2023-10-03 11:51 | NUR ---
DISCHARGE SUMMARY: PT DISCHARGED HOME. EDUCATED PT AND DAUGHTER ON DC NSTRUCTIONS AND MEDICATIONS. PT/DAUGHTER VU. ASSISTED PT WITH GETTING DRESSED AND PACKING UP BELONGINGS. PT ESCORTED TO POV VIA WHEELCHAIR. PT ABLE TO SELF TX.
== END 2023-10-03 11:41 | disposition home or self-care (01) | DRG 378 ==
LOC: ER 14:51 → MEDS 20:09
PROVIDERS: Emergency Medicine; Family Medicine; Nurse Practitioner Acute Care; Student in an Organized Health Care Education/Training Program; ADMIT Hospitalist
PROC: 30233N1 Transfusion of Nonautologous Red Blood Cells into Peripheral Vein, Percutaneous Approach (ICD-10-PCS; principal; 2023-09-30)
DX: K92.2 Gastrointestinal hemorrhage, unspecified (principal); D62 Acute posthemorrhagic anemia; G45.9 Transient cerebral ischemic attack, unspecified; E11.22 Type 2 diabetes mellitus with diabetic chronic kidney disease; R07.89 Other chest pain; E78.5 Hyperlipidemia, unspecified; I25.10 Atherosclerotic heart disease of native coronary artery without angina pectoris; I12.9 Hypertensive chronic kidney disease with stage 1 through stage 4 chronic kidney disease, or unspecified chronic kidney disease; N18.30 Chronic kidney disease, stage 3 unspecified; D63.1 Anemia in chronic kidney disease; M10.9 Gout, unspecified; E11.51 Type 2 diabetes mellitus with diabetic peripheral angiopathy without gangrene; Z86.718 Personal history of other venous thrombosis and embolism; Z90.49 Acquired absence of other specified parts of digestive tract; Z85.038 Personal history of other malignant neoplasm of large intestine; Z88.1 Allergy status to other antibiotic agents; I25.2 Old myocardial infarction; Z88.8 Allergy status to other drugs, medicaments and biological substances; Z79.84 Long term (current) use of oral hypoglycemic drugs; Z79.899 Other long term (current) drug therapy; Z79.01 Long term (current) use of anticoagulants; Z87.442 Personal history of urinary calculi; Z90.89 Acquired absence of other organs; Z98.890 Other specified postprocedural states
CPT/HCPCS: 36415; 36430; 70450; 70551; 71045; 80048; 80053; 82803; 82947; 83690; 83735; 83880; 84443; 84484; 85014; 85018; 85025; 85027; 86850; 86900; 86901; 86923; 93005; 93010; 94760; 96374; 96375; 96376; 99285-25; A9270; C9113; J1940; J2405; J3010; J7030; P9016

== ENCOUNTER 2024-04-03 17:05 | Emergency (ER) | payer MEDICARE, OTHER ==
[~2024-04-03] VITALS: Ht 160 cm; Wt 78.9 kg
[~2024-04-03 17:05] MED LIST changes: +ASCO500 PO; +ELIQUIS2.5 MG PO; +FERROUS GLUCON324 M7 PO; +IPRAT-ALBUT 0.5-3 ML INH; +LACT PO; +LEVFLO500 PO; +MESALAMINE DR400 MG PO; +METR500 PO; +MICO100S TOP; +PENTASA PO; +STIOLTO RESPIMAT4 G1 INH
[2024-04-03 18:05] LABS: BASOPHILS ABSOLUTE AUTO 0.02 K/mm3 (0.00-0.23); BASOPHILS PERCENT AUTO 0 % (0-2); EOSINOPHILS ABSOLUTE AUTO 0.21 K/mm3 (0.00-0.68); EOSINOPHILS PERCENT AUTO 4 % (0-6); Hematocrit 29.9 % (37.0-53.0); Hemoglobin 9.3 g/dL (13.5-17.5); IMMATURE GRAN ABSOLUTE AUTO 0.03 K/mm3 (0.00-0.10); IMMATURE GRAN PERCENT AUTO 1 % (0-1); LYMPHOCYTES ABSOLUTE AUTO 0.88 K/mm3 (0.84-5.20); LYMPHOCYTES PERCENT AUTO 18 % (21-46); MONOCYTES ABSOLUTE AUTO 0.47 K/mm3 (0.16-1.47); MONOCYTES PERCENT AUTO 10 % (4-13); Mean Corpuscular HGB 27.6 pg (26.0-34.0); Mean Corpuscular HGB Conc 31.1 g/dL (31.5-36.5); Mean Corpuscular Volume 89 fL (80-100); Mean Platelet Volume 9.7 fL (9.1-12.4); NEUTROPHILS ABSOLUTE AUTO 3.34 K/mm3 (1.96-9.15); NEUTROPHILS PERCENT AUTO 68 % (41-73); Platelet Count 201 K/mm3 (150-400); RDW Coefficient Variation 15.9 % (11.7-14.2); RDW Standard Deviation 50.7 fL (35.1-46.3); Red Blood Cell Count 3.37 M/mm3 (4.30-5.90); White Blood Cell Count 4.95 K/mm3 (4.00-11.30)
[2024-04-03 18:13] LABS: Albumin, Blood 2.9 g/dL (3.4-5.0); Bilirubin, Total 0.2 mg/dL (0.1-1.0); Bun/Creatinine Ratio 14.3 (12.0-20.0); Calcium, Blood 8.6 mg/dL (8.5-10.1); Creatinine, Blood 1.47 mg/dL (0.60-1.20); Potassium, Blood 4.2 mmol/L (3.5-5.5); Total Protein, Blood 5.9 g/dL (6.4-8.2)
[2024-04-03] MEDS ORDERED: Mag Hydrox/AL Hydrox/Simeth 30 ML UDC PO ONE (19:40)
[2024-04-03 22:45] VITALS: BP 144/71
== END 2024-04-03 23:11 | disposition home or self-care (01) ==
LOC: ER 17:05
PROVIDERS: Emergency Medicine
DX: R07.89 Other chest pain (principal); J44.9 Chronic obstructive pulmonary disease, unspecified; I12.9 Hypertensive chronic kidney disease with stage 1 through stage 4 chronic kidney disease, or unspecified chronic kidney disease; N18.9 Chronic kidney disease, unspecified; E11.22 Type 2 diabetes mellitus with diabetic chronic kidney disease
CPT/HCPCS: 71045; 76705; 80053; 83690; 83880; 84484; 85025; 93005; 93010; 99285-25; A9270

== ENCOUNTER → 2024-05-05 | Outpatient (CLI) | payer MEDICARE, OTHER | LOC: LAB 19:27 → LAB SHORT 19:27 | DX: R31.9 Hematuria, unspecified (principal) | CPT/HCPCS: 87086 ==

== ENCOUNTER 2024-08-05 10:39 | Emergency (ER) | payer OTHER ==
[~2024-08-05] VITALS: Ht 167.6 cm; Wt 73.9 kg
[2024-08-05] MEDS ORDERED: Ipratropium/Albuterol SulF 2.5-0.5MG/3 ML Amp INH ONE (10:55)
[2024-08-05] MEDS ORDERED: Acetaminophen 500 MG Tab PO ONE (10:55)
[2024-08-05 11:05] LABS: BASOPHILS ABSOLUTE AUTO 0.03 K/mm3 (0.00-0.23); BASOPHILS PERCENT AUTO 1 % (0-2); EOSINOPHILS ABSOLUTE AUTO 0.17 K/mm3 (0.00-0.68); EOSINOPHILS PERCENT AUTO 3 % (0-6); Hematocrit 35.7 % (37.0-53.0); Hemoglobin 11.5 g/dL (13.5-17.5); IMMATURE GRAN ABSOLUTE AUTO 0.05 K/mm3 (0.00-0.10); IMMATURE GRAN PERCENT AUTO 1 % (0-1); LYMPHOCYTES ABSOLUTE AUTO 0.87 K/mm3 (0.84-5.20); LYMPHOCYTES PERCENT AUTO 16 % (21-46); MONOCYTES ABSOLUTE AUTO 0.51 K/mm3 (0.16-1.47); MONOCYTES PERCENT AUTO 9 % (4-13); Mean Corpuscular HGB Conc 32.2 g/dL (31.5-36.5); Mean Corpuscular Volume 90 fL (80-100); Mean Platelet Volume 9.9 fL (9.1-12.4); NEUTROPHILS ABSOLUTE AUTO 3.95 K/mm3 (1.96-9.15); NEUTROPHILS PERCENT AUTO 71 % (41-73); Platelet Count 171 K/mm3 (150-400); RDW Coefficient Variation 14.6 % (11.7-14.2); RDW Standard Deviation 47.8 fL (35.1-46.3); Red Blood Cell Count 3.96 M/mm3 (4.30-5.90); White Blood Cell Count 5.58 K/mm3 (4.00-11.30)
[2024-08-05 11:43] LABS: Albumin/Globulin Ratio 0.9 (0.8-1.8); Bilirubin, Total 0.3 mg/dL (0.1-1.0); Calcium, Blood 8.6 mg/dL (8.5-10.1); Creatinine, Blood 1.6 mg/dL (0.60-1.20); Globulin, Blood 3.3 g/dL (2.2-4.0); Potassium, Blood 4.4 mmol/L (3.5-5.5); Total Protein, Blood 6.3 g/dL (6.4-8.2)
[2024-08-05 12:01] LABS: Influenza A, PCR NEGATIVE (NEGATIVE); Influenza B, PCR NEGATIVE (NEGATIVE); Resp Syncytial Virus, PCR NEGATIVE (NEGATIVE); SARS-Cov-2 (COVID-19) PCR, MMC NEGATIVE (NEGATIVE)
[2024-08-05] MEDS ORDERED: Meclizine HCl 25 MG Tab PO ONE (12:40)
[2024-08-05] MEDS ORDERED: Prochlorperazine Edisylate 10 mg Vial IV ONE (12:40)
[2024-08-05 13:24] VITALS: BP 123/71
[2024-08-05] MEDS ORDERED: MECL25 PO (13:51)
[2024-08-05] MEDS ORDERED: PROM25 PO (13:51)
== END 2024-08-05 14:06 | disposition home or self-care (01) ==
LOC: ER 10:39
PROVIDERS: Emergency Medicine
DX: R06.02 Shortness of breath (principal); R51.9 Headache, unspecified; R42 Dizziness and giddiness; J44.9 Chronic obstructive pulmonary disease, unspecified; I10 Essential (primary) hypertension; I25.2 Old myocardial infarction; E11.51 Type 2 diabetes mellitus with diabetic peripheral angiopathy without gangrene; E78.5 Hyperlipidemia, unspecified; M10.9 Gout, unspecified; Z86.73 Personal history of transient ischemic attack (TIA), and cerebral infarction without residual deficits; Z85.038 Personal history of other malignant neoplasm of large intestine; Z88.8 Allergy status to other drugs, medicaments and biological substances; Z88.5 Allergy status to narcotic agent; Z79.01 Long term (current) use of anticoagulants; Z79.84 Long term (current) use of oral hypoglycemic drugs; Z79.899 Other long term (current) drug therapy
CPT/HCPCS: 0241U; 70450; 71045; 80053; 83880; 84484; 85025; 93005; 93010; 94640; 94664; 96374; 99285-25; A9270; J0780

== ENCOUNTER 2024-11-18 10:44 | Emergency (ER) | payer OTHER ==
[~2024-11-18] VITALS: Ht 170.2 cm; Wt 78.9 kg
[~2024-11-18 10:44] MED LIST changes: +ALMACONE SUSPE355 ML PO; +Atarax10 MG PO; +JARDIANCE10 MG PO; +MECL25 PO; +METO5A PO; +PROM25 PO
[2024-11-18 11:35] LABS: BASOPHILS ABSOLUTE AUTO 0.04 K/mm3 (0.00-0.23); BASOPHILS PERCENT AUTO 1 % (0-2); EOSINOPHILS ABSOLUTE AUTO 0.15 K/mm3 (0.00-0.68); EOSINOPHILS PERCENT AUTO 3 % (0-6); Hematocrit 34.5 % (37.0-53.0); IMMATURE GRAN ABSOLUTE AUTO 0.04 K/mm3 (0.00-0.10); IMMATURE GRAN PERCENT AUTO 1 % (0-1); LYMPHOCYTES ABSOLUTE AUTO 1.15 K/mm3 (0.84-5.20); LYMPHOCYTES PERCENT AUTO 22 % (21-46); MONOCYTES ABSOLUTE AUTO 0.41 K/mm3 (0.16-1.47); MONOCYTES PERCENT AUTO 8 % (4-13); Mean Corpuscular HGB 28.9 pg (26.0-34.0); Mean Corpuscular HGB Conc 31.9 g/dL (31.5-36.5); Mean Corpuscular Volume 91 fL (80-100); Mean Platelet Volume 9.8 fL (9.1-12.4); NEUTROPHILS ABSOLUTE AUTO 3.57 K/mm3 (1.96-9.15); NEUTROPHILS PERCENT AUTO 67 % (41-73); Platelet Count 185 K/mm3 (150-400); RDW Coefficient Variation 14.3 % (11.7-14.2); RDW Standard Deviation 46.9 fL (35.1-46.3); Red Blood Cell Count 3.81 M/mm3 (4.30-5.90); White Blood Cell Count 5.36 K/mm3 (4.00-11.30)
[2024-11-18] MEDS ORDERED: Albuterol 2.5 MG/3 ML VIAL INH ONE (11:35)
[2024-11-18] MEDS ORDERED: NS 500 ML IV SCH (11:45)
[2024-11-18 11:46] LABS: Albumin, Blood 3.1 g/dL (3.4-5.0); Bilirubin, Total 0.4 mg/dL (0.1-1.0); Bun/Creatinine Ratio 20.9 (12.0-20.0); Calcium, Blood 9.4 mg/dL (8.5-10.1); Creatinine, Blood 1.53 mg/dL (0.60-1.20); Globulin, Blood 3.2 g/dL (2.2-4.0); Magnesium, Blood 2.6 mg/dL (1.6-2.4); Potassium, Blood 4.5 mmol/L (3.5-5.5); Total Protein, Blood 6.3 g/dL (6.4-8.2)
[2024-11-18 12:09] LABS: Source, Urine Clean Catch
[2024-11-18 12:17] LABS: Appearance, Urine Clear (Clear); Bilirubin, Urine Neg (Neg); Blood, Urine 1+ (Neg); Color, Urine Yellow (P-Yellow); Glucose Qualitative, Urine 4+ (Neg); Ketones, Urine Neg (Neg); Leukocyte Esterase, Urine Neg (Neg); Nitrite, Urine Neg (Neg); Protein, Urine 1+ (Neg); Urobilinogen, Urine NORM (Normal)
[2024-11-18 12:45] VITALS: BP 109/53
[2024-11-18 12:53] LABS: Influenza A, PCR NEGATIVE (NEGATIVE); Influenza B, PCR NEGATIVE (NEGATIVE); Resp Syncytial Virus, PCR NEGATIVE (NEGATIVE); SARS-Cov-2 (COVID-19) PCR, MMC NEGATIVE (NEGATIVE)
[2024-11-18 13:13] LABS: Red Blood Cells, Urine 0-2 /hpf (0-2); White Blood Cells, Urine 0-2 /hpf (0-5)
[2024-11-18 13:14] LABS: Squamous Epithelial Cells Not Seen /hpf (Few)
[2024-11-18 13:15] LABS: Bacteria Rare /hpf
[2024-11-18] MEDS ORDERED: FURO20 PO (14:24)
== END 2024-11-18 15:07 | disposition home or self-care (01) ==
LOC: ER 10:44
PROVIDERS: Student in an Organized Health Care Education/Training Program
DX: I11.0 Hypertensive heart disease with heart failure (principal); I50.9 Heart failure, unspecified; R53.1 Weakness; R07.89 Other chest pain; I25.2 Old myocardial infarction; E11.51 Type 2 diabetes mellitus with diabetic peripheral angiopathy without gangrene; J44.9 Chronic obstructive pulmonary disease, unspecified; E78.5 Hyperlipidemia, unspecified; M10.9 Gout, unspecified; Z86.73 Personal history of transient ischemic attack (TIA), and cerebral infarction without residual deficits; Z86.718 Personal history of other venous thrombosis and embolism; Z88.8 Allergy status to other drugs, medicaments and biological substances; Z88.5 Allergy status to narcotic agent; Z79.01 Long term (current) use of anticoagulants; Z79.84 Long term (current) use of oral hypoglycemic drugs; Z79.899 Other long term (current) drug therapy
CPT/HCPCS: 0241U; 51798; 71046; 80053; 81001; 83735; 83880; 84484; 85025; 93005; 93010; 94640; 94664; 99285-25; J7030

== ENCOUNTER 2025-01-08 10:29 | Inpatient (IN) | payer OTHER ==
[~2025-01-08] VITALS: Ht 170.2 cm; Wt 80.0 kg
[~2025-01-08 10:29] MED LIST changes: +FURO20 PO
[2025-01-08 10:53] LABS: BASOPHILS ABSOLUTE AUTO 0.04 K/mm3 (0.00-0.23); BASOPHILS PERCENT AUTO 1 % (0-2); EOSINOPHILS ABSOLUTE AUTO 0.19 K/mm3 (0.00-0.68); EOSINOPHILS PERCENT AUTO 3 % (0-6); Hematocrit 34.6 % (37.0-53.0); Hemoglobin 11.2 g/dL (13.5-17.5); IMMATURE GRAN ABSOLUTE AUTO 0.05 K/mm3 (0.00-0.10); IMMATURE GRAN PERCENT AUTO 1 % (0-1); LYMPHOCYTES ABSOLUTE AUTO 1.09 K/mm3 (0.84-5.20); LYMPHOCYTES PERCENT AUTO 17 % (21-46); MONOCYTES ABSOLUTE AUTO 0.65 K/mm3 (0.16-1.47); MONOCYTES PERCENT AUTO 10 % (4-13); Mean Corpuscular HGB 29.1 pg (26.0-34.0); Mean Corpuscular HGB Conc 32.4 g/dL (31.5-36.5); Mean Corpuscular Volume 90 fL (80-100); NEUTROPHILS ABSOLUTE AUTO 4.29 K/mm3 (1.96-9.15); NEUTROPHILS PERCENT AUTO 68 % (41-73); Platelet Count 181 K/mm3 (150-400); RDW Coefficient Variation 14.8 % (11.7-14.2); RDW Standard Deviation 48.3 fL (35.1-46.3); Red Blood Cell Count 3.85 M/mm3 (4.30-5.90); White Blood Cell Count 6.31 K/mm3 (4.00-11.30)
[2025-01-08 11:32] LABS: Magnesium, Blood 2.1 mg/dL (1.6-2.4)
[2025-01-08 11:33] LABS: Albumin, Blood 3.1 g/dL (3.4-5.0); Albumin/Globulin Ratio 0.9 (0.8-1.8); Bilirubin, Total 0.3 mg/dL (0.1-1.0); Bun/Creatinine Ratio 23.1 (12.0-20.0); Calcium, Blood 8.5 mg/dL (8.5-10.1); Creatinine, Blood 1.73 mg/dL (0.60-1.20); Globulin, Blood 3.3 g/dL (2.2-4.0); Potassium, Blood 4.6 mmol/L (3.5-5.5); Total Protein, Blood 6.4 g/dL (6.4-8.2)
[2025-01-08] MEDS ORDERED: NS 1,000 ML IV SCH (11:50)
[2025-01-08 13:21] LABS: Source, Urine Clean Catch
[2025-01-08 13:57] LABS: Appearance, Urine Clear (Clear); Bilirubin, Urine Neg (Neg); Blood, Urine 1+ (Neg); Glucose Qualitative, Urine 4+ (Neg); Ketones, Urine Neg (Neg); Leukocyte Esterase, Urine 1+ (Neg); Nitrite, Urine Neg (Neg); Protein, Urine Neg (Neg); Urobilinogen, Urine NORM (Normal)
[2025-01-08 14:11] LABS: Color, Urine Pale Yellow (P-Yellow)
[2025-01-08 14:12] LABS: Red Blood Cells, Urine 0-2 /hpf (0-2)
[2025-01-08 14:13] LABS: Bacteria Mod /hpf; Hyaline Casts 0-2 /lpf (0-2); Squamous Epithelial Cells Rare /hpf (Few)
[2025-01-08 15:22] VITALS: BP 163/66
[2025-01-08] MEDS ORDERED: SITA50T2 PO (15:48)
[2025-01-08] MEDS ORDERED: Empagliflozin 10 MG TAB PO SCH (16:00)
[2025-01-08] MEDS ORDERED: Ipratropium/Albuterol SulF 2.5-0.5MG/3 ML Amp INH PRN (16:50)
[2025-01-08] MEDS ORDERED: Acetaminophen 325 MG TABLET PO PRN (16:50)
[2025-01-08] MEDS ORDERED: HyDROXyzine HCl 10 MG Tab PO PRN (16:50)
[2025-01-08] MEDS ORDERED: Potassium Chloride 10 Meq Tablet SA PO SCH (17:00)
--- NOTE | 2025-01-08 17:16 | NUR ---
ADMISSION NOTE MR BRUNO ARRIVED FROM THE ER VIA STRETCHER AT 1450HRS. ST EVAL UPON ARRIVAL, HE CAN SWALLOW THIN LIQUIDS. MR BRUNO IS ORIENTATED X4, APPROPRIATE CONVERSATION. HIS SPEACH SOUNDS CLEAR AND EASY TO UNDERSTAND, HE SAID HE FEELS THAT HE IS STUTTERING MORE TODAY THAN IS USUAL FOR HIM. HE HAS WEAKER R HAND HYDRATOR THAN LEFT HAND, BUT SAID IT IS STRONGER THAN EARLIER TODAY. ABLE TO LIFT RIGHT LEG ONLY AN INCH OFF THE BED INDEPENDENTY, WEAKER THAN LEFT. NO FACIAL DROOP DETECTED. R LEG DECREASED SENSATION. NIH STROKE SCALE UNAVAILABLE ON ARRIVAL. UP TO BATHROOM WITH ASSISTANCE. HE USES A WALKER AT HOME, NO LISTING TO ONE SIDE, SOME DIFFICULTY STANDING FROM THE TOILET. C/O CHEST PAIN 3-4/10 SHARP, LEFT SIDED, NOT WORSE ON DEEP BREATH, INCREASED ON PALPATION, NO RADIATION. ALSO C/O HEADACHE THAT HE HAS HAD SINCE ER. MD NOTIFIED OF CHEST PAIN AND HEADACHE, PT GIVEN TYLENOL AND ECG DONE. 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 PT DESCRIBES SOME SOB X3-4 DAYS AND NIGHT COUGHING X 2 MONTHS. HE LIVES IN A SINGLE STORY HOUSE WITH A ROOMMATE. GETS HOME CARE 4X/WEEK FOR ASSISTANCE WITH SHOWER/FOOD PREP. SON AND DAUGHTER TO BEDSIDE CURRENTLY. PT DENIES SMOKING, VERBALISED UNDERSTANDING OF FALL PRECAUTIONS AND FIRE PREVENTION. BED LOW, CALL LIGHT IN REACH.
[2025-01-08] MEDS ORDERED: Ferrous Gluconate 325 MG Tablet PO SCH (17:30)
[2025-01-08] MEDS ORDERED: Insulin Human Lispro 100 Units/ML 3ML Syringe SC SCH (18:00)
--- NOTE | 2025-01-08 18:31 | NUR ---
"Spiritual Care Visit | Pt. Request Pt. is awake in bed and welcomes my visit. Pt. is pleasant and verbalizes that he has some sort of stroke-like event. The Pt. also verbalized that the movement and strength on his right side is returning. Considered matters of felipe and belief. Pt. displayed evidence of being aware and engaged with only minor word slurring. Prayed with Pt. Pt. verbalized gratitude fo rhte spiritual care visit and welcomed this automotive service consultant to return."
[2025-01-08 19:44] VITALS: BP 102/55
[2025-01-08] MEDS ORDERED: Prazosin HCl 1 MG Cap PO SCH (21:00)
[2025-01-08] MEDS ORDERED: Insulin Glargine-Yfgn 100 Unit/mL 3 ML SYR SC SCH (21:00)
[2025-01-08] MEDS ORDERED: Metoprolol Tartrate 25 MG Tab PO SCH (21:00)
[2025-01-08] MEDS ORDERED: Gabapentin 300 MG Cap PO SCH (21:00)
[2025-01-09] VITALS (8 sets, daily range): BP systolic 106–145; BP diastolic 47–74
--- NOTE | 2025-01-09 03:42 | NUR ---
CLINICAL SCIENCES PROFESSOR SUMMARY VSS. ALERT AND ORIENTED, NEURO CHECKS CONTINUE HE WS ADMITTED WITH CVA RELAPSE. LATEST NIH SCORE WAS 5. COOPERATIVE WITH CARE. VERBAL RESPONSE APPROPRIATE. RIGHT SIDE WEAKER. UP WITH ASSIST TO BATHROOM WITH USE OF WALKER MED TELE SR IN THE 60'S WITH BBB. ASYMPTOMATIC. HAS BEEN RESTING QUIETLY WITH FEW INTERRUPTIONS. HOB ELEVATED AT 45 DEGREES FOR COMFORT. CALL LIGHT IN REACH, RAILS UP X 2 AND BED IN LOW POSITION FOR SAFETY. WILL CONTINUE TO MONITOR
[2025-01-09 04:46] LABS: BASOPHILS ABSOLUTE AUTO 0.04 K/mm3 (0.00-0.23); BASOPHILS PERCENT AUTO 1 % (0-2); EOSINOPHILS ABSOLUTE AUTO 0.23 K/mm3 (0.00-0.68); EOSINOPHILS PERCENT AUTO 5 % (0-6); Hematocrit 32.6 % (37.0-53.0); Hemoglobin 10.5 g/dL (13.5-17.5); IMMATURE GRAN ABSOLUTE AUTO 0.02 K/mm3 (0.00-0.10); IMMATURE GRAN PERCENT AUTO 0 % (0-1); LYMPHOCYTES ABSOLUTE AUTO 0.86 K/mm3 (0.84-5.20); LYMPHOCYTES PERCENT AUTO 18 % (21-46); MONOCYTES ABSOLUTE AUTO 0.61 K/mm3 (0.16-1.47); MONOCYTES PERCENT AUTO 13 % (4-13); Mean Corpuscular HGB 28.8 pg (26.0-34.0); Mean Corpuscular HGB Conc 32.2 g/dL (31.5-36.5); Mean Corpuscular Volume 90 fL (80-100); Mean Platelet Volume 9.9 fL (9.1-12.4); NEUTROPHILS ABSOLUTE AUTO 3.03 K/mm3 (1.96-9.15); NEUTROPHILS PERCENT AUTO 63 % (41-73); Platelet Count 168 K/mm3 (150-400); RDW Coefficient Variation 14.8 % (11.7-14.2); Red Blood Cell Count 3.64 M/mm3 (4.30-5.90); White Blood Cell Count 4.79 K/mm3 (4.00-11.30)
[2025-01-09 05:04] LABS: Anion Gap 10 mmol/L (3-11); Blood Urea Nitrogen 33 mg/dL (8-24); Bun/Creatinine Ratio 20.6 (12.0-20.0); CHOL/HDL RATIO 3.7; CO2, Blood 22 mmol/L (21-32); Calcium, Blood 8.2 mg/dL (8.5-10.1); Chloride, Blood 110 mmol/L (98-108); Cholesterol 117 mg/dL (50-200); Glomerular Filtration Rate 41 (60-); Glucose, Blood 179 mg/dL (70-99); HDL Cholesterol 32 mg/dL (>39); LDL/HDL RATIO 0.6; Low Density Lipoprotein Chol 18 mg/dL (0-110); Potassium, Blood 4.2 mmol/L (3.5-5.5); Sodium, Blood 138 mmol/L (136-145); Triglycerides 333 mg/dL (30-160); Very Low Density Lipoprot Chol 66 mg/dL (6-32)
[2025-01-09] MEDS ORDERED: Insulin Human Lispro 100 Units/ML 3ML Syringe SC SCH (07:30)
[2025-01-09] MEDS ORDERED: Allopurinol 100 MG Tab PO SCH (09:00)
[2025-01-09] MEDS ORDERED: Apixaban 5 MG Tab PO SCH (09:00)
[2025-01-09] MEDS ORDERED: Atorvastatin 40 MG Tab PO SCH (09:00)
--- NOTE | 2025-01-09 09:22 | NUR ---
MD CALL MR BRUNO C/O NEW NUMBNESS TO RIGHT ARM AND RIGHT FACE, INCREASED SINCE ASSESSMENT THIS AM, INCREASED WEAKNESS TO R ARM AND R LEG, MORE DRIFT TO BOTH. ALSO C/O LEFT CHEST PAIN 12/[address] VILLAVICENCIO NOTIFIED, CAME AND DID BEDSIDE EVALUATION. VITAL SIGNS DONE, ECG DONE, TROPONIN ORDERED STAT. 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
[2025-01-09] MEDS ORDERED: Aspirin 81 MG Chew PO SCH (10:00)
--- NOTE | 2025-01-09 15:35 | NUR ---
SHIFT SUMMARY MR BRUNO HAD AN EPISODE OF INCREASED RIGHT ARM AND RIGHT LEG WEAKNESS, DECREASE IN SENSATION TO RIGHT SIDE, CHEST PAIN, SOB THIS MORNING. HE HAD ECG, MRI. HE IS NOW BACK TO SIMILAR STATUS HE WAS AT THE START OF THE SHIFT, ABLE TO LIFT RIGHT ARM AND KEEP IT UP FOR THE COUNT OF 10, SOME DRIFT TO RIGHT LEG, STILL HAS DECREASED SENSATION TO RIGHT SIDE, BACK TO NIH SCORE OF 4. HE HAS WALKED IN THE HALLS WITH WALKER/GAIT BELT/STAND BY ASSIST AND DID WELL, JUST SOME MILD SOB. NO CHEST PAIN CURRENTLY. NO CONFUSION. IN CHAIR NOW, CALL LIGHT IN REACH, FAMILY AT BEDSIDE.
--- NOTE | 2025-01-10 03:06 | NUR ---
CAT BREEDER SUMMARY VSS. ALERT AND ORIENTED. COOPERATIVE WITH CARE. CHEERFUL AFFECT WHN CONVERSING WITH STAFF. UP WITH ASSIST WITH WALKER TO BATHROOM. MED TELE SR IN THE 80'S WITH 1ST DEG AND BBB. ASYMPTOMATIC. ACCU CHECK AT HS WAS 168, NO COVERAGE NEEDED. NEURO CHECKS NIH 4-5. HAS BEEN RESTING QUIETLY WITH OCCASIONAL INTERRUPTIONS. CALL LIGHT IN REACH, RAILS UP X 2 AND BED IN LOW POSITION FOR SAFETY. ABLE TO REPOSITON SELF IN BED WITHOUT ASSIST FOR COMFORT. WILL CONTINUT TO MONITOR
[2025-01-10 04:02] VITALS: BP 106/64
[2025-01-10 05:29] LABS: BASOPHILS ABSOLUTE AUTO 0.03 K/mm3 (0.00-0.23); BASOPHILS PERCENT AUTO 1 % (0-2); EOSINOPHILS PERCENT AUTO 4 % (0-6); Hemoglobin 10.7 g/dL (13.5-17.5); IMMATURE GRAN ABSOLUTE AUTO 0.03 K/mm3 (0.00-0.10); IMMATURE GRAN PERCENT AUTO 1 % (0-1); LYMPHOCYTES ABSOLUTE AUTO 1.06 K/mm3 (0.84-5.20); LYMPHOCYTES PERCENT AUTO 21 % (21-46); MONOCYTES ABSOLUTE AUTO 0.66 K/mm3 (0.16-1.47); MONOCYTES PERCENT AUTO 13 % (4-13); Mean Corpuscular HGB 28.5 pg (26.0-34.0); Mean Corpuscular HGB Conc 31.5 g/dL (31.5-36.5); Mean Corpuscular Volume 91 fL (80-100); Mean Platelet Volume 9.6 fL (9.1-12.4); NEUTROPHILS ABSOLUTE AUTO 3.16 K/mm3 (1.96-9.15); NEUTROPHILS PERCENT AUTO 62 % (41-73); Platelet Count 176 K/mm3 (150-400); RDW Coefficient Variation 14.8 % (11.7-14.2); RDW Standard Deviation 48.9 fL (35.1-46.3); Red Blood Cell Count 3.75 M/mm3 (4.30-5.90); White Blood Cell Count 5.14 K/mm3 (4.00-11.30)
[2025-01-10 05:52] LABS: Bilirubin, Total 0.4 mg/dL (0.1-1.0); Bun/Creatinine Ratio 22.1 (12.0-20.0); Calcium, Blood 8.7 mg/dL (8.5-10.1); Creatinine, Blood 1.4 mg/dL (0.60-1.20); Potassium, Blood 4.4 mmol/L (3.5-5.5)
[2025-01-10 07:56] VITALS: BP 128/61
[2025-01-10] MEDS ORDERED: Apixaban 5 MG Tab PO SCH (09:00)
[2025-01-10 12:03] VITALS: BP 128/60
--- NOTE | 2025-01-10 12:44 | NUR ---
NOTIFIED DR. POLANCO THAT FAMILY IS IN 361 WISHING TO SPEAK WITH HER AND ALSO INQUIRING ABOUT PATIENT NOT GETTING LASIX (MEDICATION HE TAKES AT HOME DAILY) AND IS HAVING LOWER EXT SWELLING.
--- NOTE | 2025-01-10 16:04 | NUR ---
DISCHARGE NOTE: PATIENT'S IV AND TELE REMOVED; HE GOT DRESSED AND BELONGINGS COLLECTED. WENT OVER DISCHARGE WITH THE PATIENT. PATIENT WHEELED DOWN BY PATIENT REGISTRAR WITH FAMILY MEMBER TO TAKE HIM HOME. NO SIGNS OR SYMPTOMS OF DISTRESS WITH DISCHARGE.
== END 2025-01-10 15:58 | disposition home health service (06) | DRG 69 ==
LOC: ER 10:29 → MEDS 10:31
PROVIDERS: Emergency Medicine; Student in an Organized Health Care Education/Training Program; ADMIT Internal Medicine
DX: I67.82 Cerebral ischemia (principal); Z66 Do not resuscitate; I10 Essential (primary) hypertension; E78.5 Hyperlipidemia, unspecified; I25.2 Old myocardial infarction; Z86.73 Personal history of transient ischemic attack (TIA), and cerebral infarction without residual deficits; R07.9 Chest pain, unspecified; E11.51 Type 2 diabetes mellitus with diabetic peripheral angiopathy without gangrene; M10.9 Gout, unspecified; Z88.5 Allergy status to narcotic agent; Z88.8 Allergy status to other drugs, medicaments and biological substances; Z79.01 Long term (current) use of anticoagulants; Z79.899 Other long term (current) drug therapy; Z79.84 Long term (current) use of oral hypoglycemic drugs; Z90.49 Acquired absence of other specified parts of digestive tract; Z98.890 Other specified postprocedural states; Z87.891 Personal history of nicotine dependence
CPT/HCPCS: 36415; 70450; 70496; 70498; 70551; 80048; 80053; 80061; 81001; 82947; 83605; 83690; 83735; 83880; 84484; 85025; 87077; 87086; 87186; 92610; 93005; 93010; 93306; 93971; 94640; 94664; 94760; 96360; 97116; 97161; 97530; 99285-25; A9270; G0378; J1815; J7030; Q9967

== ENCOUNTER 2025-01-30 08:58 | Observation (INO) | payer OTHER ==
[~2025-01-30] VITALS: Ht 170.2 cm; Wt 79.7 kg
[~2025-01-30 08:58] MED LIST changes: +SITA50T2 PO
[2025-01-30 09:25] LABS: BASOPHILS ABSOLUTE AUTO 0.03 K/mm3 (0.00-0.23); BASOPHILS PERCENT AUTO 1 % (0-2); EOSINOPHILS ABSOLUTE AUTO 0.23 K/mm3 (0.00-0.68); EOSINOPHILS PERCENT AUTO 5 % (0-6); Hematocrit 33.4 % (37.0-53.0); Hemoglobin 10.5 g/dL (13.5-17.5); IMMATURE GRAN ABSOLUTE AUTO 0.05 K/mm3 (0.00-0.10); IMMATURE GRAN PERCENT AUTO 1 % (0-1); LYMPHOCYTES ABSOLUTE AUTO 0.99 K/mm3 (0.84-5.20); LYMPHOCYTES PERCENT AUTO 20 % (21-46); MONOCYTES ABSOLUTE AUTO 0.59 K/mm3 (0.16-1.47); MONOCYTES PERCENT AUTO 12 % (4-13); Mean Corpuscular HGB 28.6 pg (26.0-34.0); Mean Corpuscular HGB Conc 31.4 g/dL (31.5-36.5); Mean Corpuscular Volume 91 fL (80-100); Mean Platelet Volume 9.8 fL (9.1-12.4); NEUTROPHILS ABSOLUTE AUTO 3.14 K/mm3 (1.96-9.15); NEUTROPHILS PERCENT AUTO 62 % (41-73); Platelet Count 168 K/mm3 (150-400); RDW Coefficient Variation 14.9 % (11.7-14.2); RDW Standard Deviation 49.9 fL (35.1-46.3); Red Blood Cell Count 3.67 M/mm3 (4.30-5.90); White Blood Cell Count 5.03 K/mm3 (4.00-11.30)
[2025-01-30 09:50] LABS: Magnesium, Blood 2.5 mg/dL (1.6-2.4)
[2025-01-30 09:51] LABS: Albumin, Blood 3.2 g/dL (3.4-5.0); Bilirubin, Total 0.4 mg/dL (0.1-1.0); Bun/Creatinine Ratio 21.9 (12.0-20.0); Calcium, Blood 8.9 mg/dL (8.5-10.1); Creatinine, Blood 1.55 mg/dL (0.60-1.20); Globulin, Blood 3.3 g/dL (2.2-4.0); Potassium, Blood 4.6 mmol/L (3.5-5.5); Total Protein, Blood 6.5 g/dL (6.4-8.2)
[2025-01-30] MEDS ORDERED: Acetaminophen 500 MG Tab PO ONE (10:10)
[2025-01-30] MEDS ORDERED: Metoclopramide HCl 5MG / ML 2ML Vial IV ONE (10:10)
[2025-01-30] MEDS ORDERED: Aspirin 325 MG Tab PO ONE (10:15)
[2025-01-30 14:02] VITALS: BP 131/54
[2025-01-30] MEDS ORDERED: TORS10 PO (15:17)
[2025-01-30] MEDS ORDERED: PANT40 PO (15:22)
[2025-01-30] MEDS ORDERED: ACET500 PO (15:23)
[2025-01-30] MEDS ORDERED: PSYSENPA PO (15:24)
[2025-01-30 15:25] VITALS: BP 110/54
[2025-01-30] MEDS ORDERED: HyDROXyzine HCl 10 MG Tab PO PRN (15:35)
[2025-01-30] MEDS ORDERED: Ipratropium/Albuterol SulF 2.5-0.5MG/3 ML Amp INH SCH ×2 (15:45→17:00)
[2025-01-30] MEDS ORDERED: Empagliflozin 10 MG TAB PO SCH (16:00)
--- NOTE | 2025-01-30 16:27 | NUR ---
SHIFT SUMMARY PT AOX4, COOPERATIVE, ABLE TO MAKE NEEDS KNOWN. PT IS 1 TO 2 PERSON ASSIST TO TOILET FOR VOIDING. NO TELE, NO FLUIDS RUNNING. GOING FOR MRI TODAY FOR RESULTS OF CVA. ACHS BLOOD SUGAR CHECKS WITH COVERAGE ORDERED. BED IN LOWEST POSITION, CALL LIGHT WITHIN REACH.
[2025-01-30] MEDS ORDERED: Insulin Human Lispro 100 Units/ML 3ML Syringe SC SCH (16:30)
[2025-01-30 19:13] VITALS: BP 120/58
[2025-01-30] MEDS ORDERED: Apixaban 5 MG Tab PO SCH (21:00)
[2025-01-30] MEDS ORDERED: Metoprolol Tartrate 25 MG Tab PO SCH (21:00)
[2025-01-30] MEDS ORDERED: Prazosin HCl 1 MG Cap PO SCH (21:00)
[2025-01-30] MEDS ORDERED: Gabapentin 300 MG Cap PO SCH (21:00)
[2025-01-31 02:26] VITALS: BP 126/77
[2025-01-31 07:41] VITALS: BP 127/60
--- NOTE | 2025-01-31 07:48 | NUR ---
SHIFT SUMMARY AT START OF SHIFT, SITTING UP ON SIDE OF BED. DAUGHTER AND SON IN LAW VISITING. APPROX 1915, VISITORS LEFT. 1954, RT AT BEDSIDE PROVIDING BREATHING TX. 2100 MED PASS, PT DID NOT NEED INSULIN COVERAGE, BLOOD GLUCOSE LEVEL WAS 220. PT SLEEPING SOUNDLY THROUGH NIGHT, WAKING FOR CARE NECESSARY. UPON NIGHTLY ROUNDING, PT CONTINUES TO DENY PAIN. CONTINUING TO MONITOR. CALL LIGHT WITHIN REACH. PT IS PLEASANT AND COOPERATIVE WITH CARE.
[2025-01-31] MEDS ORDERED: Furosemide 20 MG Tab PO SCH (09:00)
[2025-01-31] MEDS ORDERED: Ascorbic Acid 500 MG Tab PO SCH (09:00)
[2025-01-31] MEDS ORDERED: Cyanocobalamin 500 MCG Tab PO SCH (09:00)
[2025-01-31] MEDS ORDERED: Atorvastatin 40 MG Tab PO SCH (09:00)
[2025-01-31] MEDS ORDERED: Ferrous Sulfate 325 MG Tab PO SCH (09:00)
[2025-01-31] MEDS ORDERED: Torsemide 10 MG TAB PO SCH (09:00)
[2025-01-31] MEDS ORDERED: Allopurinol 100 MG Tab PO SCH (09:00)
[2025-01-31] MEDS ORDERED: Cholecalciferol 1000 Unit Tablet (=25MCG) PO SCH (09:00)
[2025-01-31] MEDS ORDERED: Aspirin 81 MG Chew PO ONE (13:30)
[2025-01-31] MEDS ORDERED: ASPI81CH PO (14:00)
[2025-01-31] MEDS ORDERED: ATOR40TA PO (14:00)
--- NOTE | 2025-01-31 14:48 | NUR ---
DISHCARGE PT AOX4, COOPERATIVE, ABLE TO MAKE NEEDS KNOWN. PT IS 1 PERSON ASSIST USING FWW TO BATHROOM TO VOID. PT IS AWAITING DAUGHTER FOR TRANSPORT HOME, WILL BE WAITING IN ROOM UNTIL DAUGHTER ARRIVES. DC PAPERWORK WENT OVER AND SIGNED. IV CHARANJIT'Anne.
--- NOTE | 2025-01-31 15:13 | NUR ---
DAUGHTER ARRIVED TO TRANSPORT PT IN WHEELCHAIR DOWN TO PT ENTRANCE WITHOUT EVENTS.
[2025-02-01 19:56] LABS: HOMOCYSTEINE, TOTAL 15 umol/L (0-15)
[2025-02-01 22:20] LABS: CARDIOLIPIN ANTIBODY IGG <10 GPL (<=14); CARDIOLIPIN ANTIBODY IGM <10 MPL (<=12)
[2025-02-01 22:44] LABS: B2GLYCOPROTEIN 1, IGG ANTIBODY <10 SGU (<=20); B2GLYCOPROTEIN 1, IGM ANTIBODY <10 SMU (<=20)
[2025-02-02 12:58] LABS: PROTEIN C FUNCTIONAL 127 % (83-168)
[2025-02-02 14:06] LABS: ANTI-XA QUALITATIVE INTERP Present (Not Present); ANTICOAG MEDICATION NEUTRALIZ DOAC-Stop (Not Performed); DRVVT 1:1 MIX RATIO Not Performed (<=1.20); DRVVT CONFIRMATION RATIO Not Performed (<=1.20); DRVVT SCREEN RATIO 1.59 (<=1.20); HEXAGONAL PHOSPHOLIPID CONFIRM Not Performed s (<=7.9); NEUTRALIZED DRVVT SCREEN RATIO 1.12 (<=1.20); NEUTRALIZED PTT-LA RATIO 1.15 (<=1.20); PROTHROMBIN TIME (PT) 15.4 s (12.0-15.5); PTT-LA RATIO 1.31 (<=1.20); THROMBIN TIME (TT) 16.9 s (<=19.5)
[2025-02-02 17:26] LABS: ANTITHROMBIN, ENZYM (ACTIVITY) 98 % (76-128)
[2025-02-02 23:33] LABS: APC RESISTANCE 3.77 (>=2.00); FACTOR V LEIDEN BY PCR Not Done; FACV REF SPECIMEN Not Done
[2025-02-03 10:31] LABS: PROTEIN S AG FREE 45 % (74-147)
[2025-02-05 18:16] LABS: PROTHROMBIN F2 G20210A VARIANT Negative; PT PCR SPECIMEN Whole Blood
== END 2025-01-31 15:10 | disposition home or self-care (01) ==
LOC: ER 08:58 → MEDS 08:59
PROVIDERS: Student in an Organized Health Care Education/Training Program; ADMIT Family Medicine
DX: R53.1 Weakness (principal); I10 Essential (primary) hypertension; I25.10 Atherosclerotic heart disease of native coronary artery without angina pectoris; I25.2 Old myocardial infarction; E11.9 Type 2 diabetes mellitus without complications; E78.5 Hyperlipidemia, unspecified; M10.9 Gout, unspecified; K21.9 Gastro-esophageal reflux disease without esophagitis; Z66 Do not resuscitate; Z86.718 Personal history of other venous thrombosis and embolism; Z88.8 Allergy status to other drugs, medicaments and biological substances; Z79.01 Long term (current) use of anticoagulants; Z79.84 Long term (current) use of oral hypoglycemic drugs; Z79.899 Other long term (current) drug therapy
CPT/HCPCS: 70450; 70551; 80053; 81240; 82947; 83090; 83735; 85025; 85300; 85303; 85306; 85307; 85520; 85610; 85613; 85670; 85730; 86146; 86147; 93005; 93010; 94640; 94664; 94760; 96374; 99285-25; A9270; G0378; J2765

== ENCOUNTER 2025-02-01 11:48 | Observation (INO) | payer OTHER ==
[~2025-02-01] VITALS: Ht 170.2 cm; Wt 79.6 kg
[~2025-02-01 11:48] MED LIST changes: +PSYSENPA PO; +TORS10 PO
[2025-02-01 12:31] LABS: BASOPHILS ABSOLUTE AUTO 0.02 K/mm3 (0.00-0.23); BASOPHILS PERCENT AUTO 0 % (0-2); EOSINOPHILS ABSOLUTE AUTO 0.22 K/mm3 (0.00-0.68); EOSINOPHILS PERCENT AUTO 4 % (0-6); Hematocrit 32.9 % (37.0-53.0); Hemoglobin 10.6 g/dL (13.5-17.5); IMMATURE GRAN ABSOLUTE AUTO 0.04 K/mm3 (0.00-0.10); IMMATURE GRAN PERCENT AUTO 1 % (0-1); LYMPHOCYTES ABSOLUTE AUTO 1.19 K/mm3 (0.84-5.20); LYMPHOCYTES PERCENT AUTO 22 % (21-46); MONOCYTES ABSOLUTE AUTO 0.64 K/mm3 (0.16-1.47); MONOCYTES PERCENT AUTO 12 % (4-13); Mean Corpuscular HGB 28.6 pg (26.0-34.0); Mean Corpuscular HGB Conc 32.2 g/dL (31.5-36.5); Mean Corpuscular Volume 89 fL (80-100); Mean Platelet Volume 10.6 fL (9.1-12.4); NEUTROPHILS ABSOLUTE AUTO 3.29 K/mm3 (1.96-9.15); NEUTROPHILS PERCENT AUTO 61 % (41-73); Platelet Count 180 K/mm3 (150-400); RDW Standard Deviation 48.4 fL (35.1-46.3)
[2025-02-01 12:43] LABS: Albumin, Blood 3.3 g/dL (3.4-5.0); Bilirubin, Total 0.4 mg/dL (0.1-1.0); Bun/Creatinine Ratio 22.5 (12.0-20.0); Calcium, Blood 8.8 mg/dL (8.5-10.1); Creatinine, Blood 1.6 mg/dL (0.60-1.20); Globulin, Blood 3.3 g/dL (2.2-4.0); Potassium, Blood 4.4 mmol/L (3.5-5.5); Total Protein, Blood 6.6 g/dL (6.4-8.2)
[2025-02-01 18:48] VITALS: BP 142/81
[2025-02-01 19:24] VITALS: BP 136/67
--- NOTE | 2025-02-01 21:32 | NUR ---
ASSUMPTION OF CARE ASSUMED PT'S CARE AT 1900,BEDSIDE REPORT COMPLETED.PT HAD JUST ARRIVED TO THE UNIT 15 MINUTES AGO.FAMILY AT BEDSIDE.PT SITTING AT THE EDGE OF THE BED,DENIES PAIN,DENIES NEEDS.CALL LIGHT AND PT'S ITEMS WITHIN REACH.WILL CONTINUE TO MONITOR.
[2025-02-01 23:53] VITALS: BP 107/56
[2025-02-02 04:01] VITALS: BP 124/63
[2025-02-02 06:05] LABS: BASOPHILS ABSOLUTE AUTO 0.03 K/mm3 (0.00-0.23); BASOPHILS PERCENT AUTO 1 % (0-2); EOSINOPHILS ABSOLUTE AUTO 0.22 K/mm3 (0.00-0.68); EOSINOPHILS PERCENT AUTO 4 % (0-6); Hematocrit 33.4 % (37.0-53.0); Hemoglobin 10.5 g/dL (13.5-17.5); IMMATURE GRAN ABSOLUTE AUTO 0.02 K/mm3 (0.00-0.10); IMMATURE GRAN PERCENT AUTO 0 % (0-1); LYMPHOCYTES ABSOLUTE AUTO 1.32 K/mm3 (0.84-5.20); LYMPHOCYTES PERCENT AUTO 26 % (21-46); MONOCYTES ABSOLUTE AUTO 0.73 K/mm3 (0.16-1.47); MONOCYTES PERCENT AUTO 14 % (4-13); Mean Corpuscular HGB 28.1 pg (26.0-34.0); Mean Corpuscular HGB Conc 31.4 g/dL (31.5-36.5); Mean Corpuscular Volume 89 fL (80-100); Mean Platelet Volume 10.1 fL (9.1-12.4); NEUTROPHILS ABSOLUTE AUTO 2.79 K/mm3 (1.96-9.15); NEUTROPHILS PERCENT AUTO 55 % (41-73); Platelet Count 182 K/mm3 (150-400); RDW Standard Deviation 48.3 fL (35.1-46.3); Red Blood Cell Count 3.74 M/mm3 (4.30-5.90); White Blood Cell Count 5.11 K/mm3 (4.00-11.30)
--- NOTE | 2025-02-02 06:34 | NUR ---
PT SLEPT MOST OF THE NIGHT,UP WITH ONE ASSIST AND A WALKER TO THE BATHROOM.NO C/O CHEST PAIN/PRESSURE,NO SOB.PT AWAKE AT THIS TIME,SITTING AT THE EDGE OF THE BED.PT DENIES PAIN,DENIES NEEDS AT THIS TIME.CALL LIGHT AND PT'S ITEMS WITHIN REACH.WILL GIVE REPORT TO DAYSHIFT NURSE FOR CONTINUITY OF CARE.
[2025-02-02 06:35] LABS: Albumin, Blood 3.1 g/dL (3.4-5.0); Bilirubin, Total 0.3 mg/dL (0.1-1.0); Bun/Creatinine Ratio 20.6 (12.0-20.0); Calcium, Blood 8.8 mg/dL (8.5-10.1); Creatinine, Blood 1.6 mg/dL (0.60-1.20); Potassium, Blood 4.2 mmol/L (3.5-5.5); Total Protein, Blood 6.1 g/dL (6.4-8.2)
[2025-02-02 07:10] VITALS: BP 134/78
[2025-02-02] MEDS ORDERED: Enoxaparin 40 MG/0.4 ML SYR SC SCH (09:00)
[2025-02-02 11:30] VITALS: BP 126/61
[2025-02-02] MEDS ORDERED: Regadenoson 0.4 MG/5 ML SYRINGE ONE (13:33)
[2025-02-02] MEDS ORDERED: Caffeine Citrated 60 MG/3 ML Vial ONE (13:33)
[2025-02-02 15:54] VITALS: BP 141/69
--- NOTE | 2025-02-02 17:52 | NUR ---
DISCHARGE NOTE PATIENT EDUCATED ON DISCHARGE PACKET AND INSTRUCTIONS. NO NEW MEDICATIONS PRESCRIBED. CONTINUING ALL HOME MEDS. IV AND TELE REMOVED. ESCORTED DOWN VIA WHEELCHAIR AND FAMILY FRIEND PICKED UP. DAUGHTER MADE AWARE OF DISCHARGE. NO QUESTIONS OR CONCERNS PRIOR TO DC. BELOGINGS GATHERED AND RETURNED.
== END 2025-02-02 18:02 | disposition home health service (06) ==
LOC: ER 11:48 → MEDS 18:27
PROVIDERS: Student in an Organized Health Care Education/Training Program; ADMIT Family Medicine
DX: R07.9 Chest pain, unspecified (principal); M10.9 Gout, unspecified; E11.51 Type 2 diabetes mellitus with diabetic peripheral angiopathy without gangrene; K21.9 Gastro-esophageal reflux disease without esophagitis; I10 Essential (primary) hypertension; I25.2 Old myocardial infarction; E78.5 Hyperlipidemia, unspecified; Z66 Do not resuscitate; Z86.718 Personal history of other venous thrombosis and embolism; Z87.448 Personal history of other diseases of urinary system; Z79.01 Long term (current) use of anticoagulants; Z79.84 Long term (current) use of oral hypoglycemic drugs; Z79.899 Other long term (current) drug therapy; Z88.8 Allergy status to other drugs, medicaments and biological substances
CPT/HCPCS: 36415; 71045; 78452; 80053; 84484; 85025; 93005; 93010; 93017; 96372; 99285-25; A9500; G0378; J0706; J1650; J2785

== ENCOUNTER 2025-05-02 18:16 | Emergency (ER) | payer OTHER ==
[~2025-05-02] VITALS: Ht 160 cm; Wt 79.4 kg
[~2025-05-02 18:16] MED LIST changes: +ALBU90OI INH; +DOXY100 PO; +PRED20 PO
[2025-05-02 19:04] LABS: BASOPHILS ABSOLUTE AUTO 0.04 K/mm3 (0.00-0.23); BASOPHILS PERCENT AUTO 1 % (0-2); EOSINOPHILS ABSOLUTE AUTO 0.20 K/mm3 (0.00-0.68); EOSINOPHILS PERCENT AUTO 3 % (0-6); Hematocrit 34.6 % (37.0-53.0); Hemoglobin 10.8 g/dL (13.5-17.5); IMMATURE GRAN ABSOLUTE AUTO 0.04 K/mm3 (0.00-0.10); IMMATURE GRAN PERCENT AUTO 1 % (0-1); LYMPHOCYTES ABSOLUTE AUTO 1.46 K/mm3 (0.84-5.20); LYMPHOCYTES PERCENT AUTO 22 % (21-46); MONOCYTES ABSOLUTE AUTO 0.63 K/mm3 (0.16-1.47); MONOCYTES PERCENT AUTO 10 % (4-13); Mean Corpuscular HGB Conc 31.2 g/dL (31.5-36.5); Mean Corpuscular Volume 88 fL (80-100); NEUTROPHILS ABSOLUTE AUTO 4.16 K/mm3 (1.96-9.15); NEUTROPHILS PERCENT AUTO 64 % (41-73); NRBC ABSOLUTE 0.00 K/mm3 (0.00-0.02); NRBC Auto 0.0 /100 WBC (0.0-0.2); Platelet Count 184 K/mm3 (150-400); RDW Coefficient Variation 14.7 % (11.7-14.2); RDW Standard Deviation 46.5 fL (35.1-46.3)
[2025-05-02 19:08] LABS: Alanine Aminotransfer (ALT/SGP 26.0 U/L (12-78); Albumin, Blood 3.0 g/dL (3.4-5.0); Albumin/Globulin Ratio 0.9 (0.8-1.8); Anion Gap 9.0 mmol/L (3-11); Aspartate Aminotrans (AST/SGOT 21.0 U/L (12-37); Bilirubin, Total 0.3 mg/dL (0.1-1.0); Blood Urea Nitrogen 20.0 mg/dL (8-24); CO2, Blood 21.0 mmol/L (21-32); Calcium, Blood 8.3 mg/dL (8.5-10.1); Chloride, Blood 110.0 mmol/L (98-108); Creatinine, Blood 1.21 mg/dL (0.60-1.20); Globulin, Blood 3.2 g/dL (2.2-4.0); Glucose, Blood 200.0 mg/dL (70-99); Potassium, Blood 4.1 mmol/L (3.5-5.5); Sodium, Blood 136.0 mmol/L (136-145); Total Protein, Blood 6.2 g/dL (6.4-8.2)
[2025-05-02] MEDS ORDERED: RX Prepack Albuterol 1 PREPACK/6.7 GM INH UD ONE (22:05)
[2025-05-02 22:30] VITALS: BP 132/75
== END 2025-05-02 23:34 | disposition home or self-care (01) ==
LOC: ER 18:16
PROVIDERS: Emergency Medicine
DX: R06.02 Shortness of breath (principal); R53.1 Weakness; I12.9 Hypertensive chronic kidney disease with stage 1 through stage 4 chronic kidney disease, or unspecified chronic kidney disease; E11.22 Type 2 diabetes mellitus with diabetic chronic kidney disease; N18.30 Chronic kidney disease, stage 3 unspecified; J44.9 Chronic obstructive pulmonary disease, unspecified; E11.51 Type 2 diabetes mellitus with diabetic peripheral angiopathy without gangrene; I25.2 Old myocardial infarction; Z86.73 Personal history of transient ischemic attack (TIA), and cerebral infarction without residual deficits
CPT/HCPCS: 70450; 71045; 80053; 84484; 85025; 93005; 93010; 99285-25; A9270

== ENCOUNTER 2025-05-07 08:58 | Emergency (ER) | payer OTHER ==
[~2025-05-07] VITALS: Ht 162.6 cm; Wt 79.8 kg
[2025-05-07] MEDS ORDERED: Lidocaine/Tetracaine/Epinephr 3 ML GEL SYRINGE TOP ONE (09:20)
[2025-05-07] MEDS ORDERED: Ketorolac Tromethamine 15mg Vial IV ONE (10:35)
[2025-05-07 12:45] VITALS: BP 114/59
== END 2025-05-07 13:05 | disposition home or self-care (01) ==
LOC: ER 08:58
DX: S00.03XA Contusion of scalp, initial encounter (principal); M25.552 Pain in left hip; Z59.89 Other problems related to housing and economic circumstances; Z88.8 Allergy status to other drugs, medicaments and biological substances; Z79.01 Long term (current) use of anticoagulants; Z79.84 Long term (current) use of oral hypoglycemic drugs; Z79.899 Other long term (current) drug therapy; I12.9 Hypertensive chronic kidney disease with stage 1 through stage 4 chronic kidney disease, or unspecified chronic kidney disease; E11.22 Type 2 diabetes mellitus with diabetic chronic kidney disease; N18.30 Chronic kidney disease, stage 3 unspecified; J45.909 Unspecified asthma, uncomplicated; G47.33 Obstructive sleep apnea (adult) (pediatric); E78.5 Hyperlipidemia, unspecified; Z87.442 Personal history of urinary calculi
CPT/HCPCS: 70450; 72125; 72131; 73502; 96374; 99284-25; J1885

== ENCOUNTER 2025-05-23 15:41 | Emergency (ER) | payer OTHER ==
[~2025-05-23] VITALS: Ht 162.6 cm; Wt 79.8 kg
[2025-05-23] MEDS ORDERED: Ondansetron HCl 2 MG / ML 2ML Vial IV PRN (16:00)
[2025-05-23 16:11] LABS: BASOPHILS ABSOLUTE AUTO 0.04 K/mm3 (0.00-0.23); BASOPHILS PERCENT AUTO 1 % (0-2); EOSINOPHILS ABSOLUTE AUTO 0.21 K/mm3 (0.00-0.68); EOSINOPHILS PERCENT AUTO 3 % (0-6); Hematocrit 34.4 % (37.0-53.0); Hemoglobin 10.6 g/dL (13.5-17.5); IMMATURE GRAN ABSOLUTE AUTO 0.04 K/mm3 (0.00-0.10); IMMATURE GRAN PERCENT AUTO 1 % (0-1); LYMPHOCYTES ABSOLUTE AUTO 1.44 K/mm3 (0.84-5.20); LYMPHOCYTES PERCENT AUTO 18 % (21-46); MONOCYTES ABSOLUTE AUTO 0.67 K/mm3 (0.16-1.47); MONOCYTES PERCENT AUTO 8 % (4-13); Mean Corpuscular HGB Conc 30.8 g/dL (31.5-36.5); Mean Corpuscular Volume 87 fL (80-100); NEUTROPHILS ABSOLUTE AUTO 5.75 K/mm3 (1.96-9.15); NEUTROPHILS PERCENT AUTO 71 % (41-73); NRBC ABSOLUTE 0.00 K/mm3 (0.00-0.02); NRBC Auto 0.0 /100 WBC (0.0-0.2); Platelet Count 206 K/mm3 (150-400); RDW Coefficient Variation 14.9 % (11.7-14.2); RDW Standard Deviation 47.7 fL (35.1-46.3)
[2025-05-23 16:24] LABS: Alanine Aminotransfer (ALT/SGP 21.0 U/L (12-78); Albumin, Blood 3.0 g/dL (3.4-5.0); Albumin/Globulin Ratio 1.0 (0.8-1.8); Anion Gap 6.0 mmol/L (3-11); Aspartate Aminotrans (AST/SGOT 16.0 U/L (12-37); Bilirubin, Total 0.3 mg/dL (0.1-1.0); Blood Urea Nitrogen 28.0 mg/dL (8-24); CO2, Blood 25.0 mmol/L (21-32); Calcium, Blood 8.5 mg/dL (8.5-10.1); Chloride, Blood 109.0 mmol/L (98-108); Creatinine, Blood 1.5 mg/dL (0.60-1.20); Globulin, Blood 3.0 g/dL (2.2-4.0); Glucose, Blood 181.0 mg/dL (70-99); Potassium, Blood 4.1 mmol/L (3.5-5.5); Sodium, Blood 136.0 mmol/L (136-145); Total Protein, Blood 6.0 g/dL (6.4-8.2)
[2025-05-23 19:45] VITALS: BP 127/67
== END 2025-05-23 20:06 | disposition home or self-care (01) ==
LOC: ER 15:41
PROVIDERS: Emergency Medicine
DX: R07.2 Precordial pain (principal); I44.0 Atrioventricular block, first degree; I45.10 Unspecified right bundle-branch block; I12.9 Hypertensive chronic kidney disease with stage 1 through stage 4 chronic kidney disease, or unspecified chronic kidney disease; E11.22 Type 2 diabetes mellitus with diabetic chronic kidney disease; N18.30 Chronic kidney disease, stage 3 unspecified; I25.2 Old myocardial infarction; J44.9 Chronic obstructive pulmonary disease, unspecified; E11.42 Type 2 diabetes mellitus with diabetic polyneuropathy; E11.51 Type 2 diabetes mellitus with diabetic peripheral angiopathy without gangrene; E78.5 Hyperlipidemia, unspecified; G47.33 Obstructive sleep apnea (adult) (pediatric); Z86.73 Personal history of transient ischemic attack (TIA), and cerebral infarction without residual deficits; Z88.5 Allergy status to narcotic agent; Z88.8 Allergy status to other drugs, medicaments and biological substances; Z79.01 Long term (current) use of anticoagulants; Z79.84 Long term (current) use of oral hypoglycemic drugs; Z79.52 Long term (current) use of systemic steroids; Z79.899 Other long term (current) drug therapy
CPT/HCPCS: 71046; 74177; 80053; 83690; 83880; 84484; 85025; 93005; 93010; 99285-25; Q9967